=== PATIENT | female | born 1990 | race African-American/Black ===

== ENCOUNTER 2016-08-05 12:12 | Inpatient (IN) | payer MEDICAID ==
[2016-08-05] MEDS ORDERED: RINGERS SOLUTION,LACTATED 1,000 ML IV PRN (12:33)
[2016-08-05] MEDS ORDERED: RINGERS SOLUTION,LACTATED 1,000 ML IV ONE (12:33)
[2016-08-05 13:08] LABS: APPEARANCE,URINE SLIGHTLY-CLOUDY; BILIRUBIN,URINE NEGATIVE (NEGATIVE); GLUCOSE, URINE 150 mg/dL (NEGATIVE); KETONES,URINE NEGATIVE (NEGATIVE); LEUKOCYTE ESTERASE,URINE NEGATIVE (NEGATIVE); NITRITE,URINE NEGATIVE (NEGATIVE); PROTEIN,URINE NEGATIVE (NEGATIVE); UROBILINOGEN,URINE NEGATIVE mg/dL (<2.0)
[2016-08-05 13:25] LABS: URINE BARBITURATES SCREEN NEGATIVE; URINE METHADONE SCREEN NEGATIVE; URINE OPIATES LOW NEGATIVE; URINE PHENCYCLIDINE SCREEN NEGATIVE
[2016-08-05] MEDS ORDERED: OXYTOCIN/NORMAL SALINE 20 UNIT/1,000 ML RTUINJ ONE ×2 (13:42→18:04)
--- NOTE | 2016-08-05 14:01 | L&D Flow Sheet ---
LD Flowsheet Datetime Report Generated by CPN: 08/05/2016 14:00 Datetime: 08/05/2016 13:39 Vital Signs NBP Sys/Vira/Mean (mmHg): 115 (QS system process) : 66 (QS system process) : 84 (QS system process) Pulse: 109 (QS system process) Datetime: 08/05/2016 13:09 Vital Signs NBP Sys/Vira/Mean (mmHg): 106 (QS system process) : 66 (QS system process) : 76 (QS system process) Pulse: 93 (QS system process) Datetime: 08/05/2016 12:53 Pain Pain Scale: 0 (Cleo Andrae, RN) Pain Presence: None/Denies (Cleo Andrae, RN) Pain Type: N/A (Cleo Andrae, RN) Vaginal Exam Membrane Status: Intact (Cleo Andrae, RN) Vaginal Bleeding: None (Cleo Andrae, RN) Acosat's Score Dilatation (cm): 1-2 cm (Cleo Andrae, RN) Effacement: 40-50_ effaced (Cleo Andrae, RN) Station: minus 3 (Cleo Andrae, RN) Maternal Assessment Level of Consciousness: Fully Conscious (Cleo Andrae, RN) Headache: Denies (Cleo Andrae, RN) Breath Sounds, Left: Clear and Equal (Cleo Andrae, RN) Breath Sounds, Right: Clear and Equal (Cleo Andrae, RN) Nausea/Vomiting: Denies (Cleo Andrae, RN) RUQ Epigastric Pain: Denies (Cleo Andrae, RN) Patient Care I/O Interventions: Popsicle; Clear Liquids Given (Cleo Andrae, RN) Datetime: 08/05/2016 12:50 Patient Care Comments: consents signed (Tahmina Camp, RNC) Datetime: 08/05/2016 12:45 Patient Care Comments: 18g inserted into right wrist, infusing without difficulty, pt tolerated procedure well. Blood drawn with IV stick (ARTUR Pete) Datetime: 08/05/2016 12:41 Teaching Instructional Method: Verbal; Patient Instructed; Family/Support Person Instructed; Verbalized Understanding (ARTUR Pete) Plan of Care: Plan of Care Discussed; Induction (ARTUR Pete) Teaching Comments: [facility] at bedside reviewed plan for induction of labor and DX oligohydramnious reviewed and potential risk to fetus with continued decrease fluid (ARTUR Pete) Communication Communication: RN at Bedside; Provider at Bedside (Tahmina Camp, RNC) Datetime: 08/05/2016 12:39 Vital Signs NBP Sys/Vira/Mean (mmHg): 104 (QS system process) : 61 (QS system process) : 73 (QS system process) Pulse: 99 (QS system process)
[2016-08-05 14:14] LABS: ABSOLUTE LYMPHOCYTES (AUTO) 1.5 10^3/uL (0.5-4.7); ABSOLUTE MONOCYTES (AUTO) 0.8 10^3/uL (0.1-1.4); ABSOLUTE NEUT (AUTO) 6.7 10^3/uL (1.7-8.2); BASOPHILS % (AUTO) 0.3 % (0-2); EOSINOPHILS % (AUTO) 0.4 % (0-6); HEMATOCRIT 33.1 % (36.0-47.0); HEMOGLOBIN 11.3 g/dL (12.0-15.5); HGB HCT DIFFERENCE 0.8; LYMPHOCYTES % (AUTO) 16.7 % (13-45); MEAN CORPUSCULAR HEMOGLOBIN 33.8 pg (27.0-33.4); MEAN CORPUSCULAR HGB CONC 34.3 g/dL (32.0-36.0); MEAN CORPUSCULAR VOLUME 99 fl (80-97); MONOCYTES % (AUTO) 9.2 % (3-13); RED BLOOD COUNT 3.35 10^6/uL (3.72-5.28); RED CELL DISTRIBUTION WIDTH 13.5 % (11.5-14.0); SEGMENTED NEUTROPHILS % (AUTO) 73.4 % (42-78); WHITE BLOOD COUNT 9.1 10^3/uL (4.0-10.5)
--- NOTE | 2016-08-05 16:01 | L&D Flow Sheet ---
LD Flowsheet Datetime Report Generated by CPN: 08/05/2016 16:00 Datetime: 08/05/2016 15:44 Monitor Mode: External (Cleo Andrae, RN) Frequency (min): 40-90 (Cleo Andrae, RN) Quality: Mild (Cleo Andrae, RN) Resting Tone (Palpate): Relaxed (Cleo Andrae, RN) Monitor Mode: External US (Cleo Andrae, RN) FHR Baseline Rate : 145 (Cleo Andrae, RN) Variability: Moderate 6-25 bpm (Cleo Andrae, RN) Accelerations: 10X10 (Cleo Andrae, RN) Decelerations: None (Cleo Andrae, RN) Datetime: 08/05/2016 15:40 NBP Sys/Vira/Mean (mmHg): 118 (QS system process) : 60 (QS system process) : 81 (QS system process) Pulse: 97 (QS system process) Monitor Mode: External (Cleo Andrae, RN) Frequency (min): 3-4 (Cleo Andrae, RN) Quality: Mild (Cleo Andrae, RN) Duration (sec): 50-100 (Cleo Andrae, RN) Resting Tone (Palpate): Relaxed (Cleo Andrae, RN) Monitor Mode: External US (Cleo Andrae, RN) FHR Baseline Rate : 145 (Cleo Andrae, RN) Variability: Moderate 6-25 bpm (Cleo Andrae, RN) Accelerations: None (Cleo Andrae, RN) Decelerations: Early (Cleo Andrae, RN) Datetime: 08/05/2016 15:30 Monitor Mode: External (Cleo Andrae, RN) Frequency (min): 3-5 (Cleo Andrae, RN) Quality: Mild (Cleo Andrae, RN) Duration (sec): 60-110 (Cleo Andrae, RN) Resting Tone (Palpate): Relaxed (Cleo Andrae, RN) Monitor Mode: External US (Cleo Andrae, RN) FHR Baseline Rate : 145 (Cleo Andrae, RN) Variability: Moderate 6-25 bpm (Cleo Andrae, RN) Accelerations: 15X15 (Cleo Andrae, RN) Decelerations: None (Cleo Andrae, RN) Datetime: 08/05/2016 15:15 Monitor Mode: External (Cleo Andrae, RN) Frequency (min): 3 (Cleo Andrae, RN) Quality: Mild (Cleo Andrae, RN) Duration (sec): 60-100 (Cleo Andrae, RN) Resting Tone (Palpate): Relaxed (Cleo Andrae, RN) Monitor Mode: External US (Cleo Andrae, RN) FHR Baseline Rate : 145 (Cleo Andrae, RN) Variability: Moderate 6-25 bpm (Cleo Andrae, RN) Accelerations: None (Cleo Andrae, RN) Decelerations: None (Cleo Andrae, RN) Datetime: 08/05/2016 15:12 Pitocin (milliunit): Pitocin Increased to (milliunits) @ 6 (Cleo Andrae, RN) Datetime: 08/05/2016 15:09 NBP Sys/Vira/Mean (mmHg): 113 (QS system process) : 60 (QS system process) : 76 (QS system process) Pulse: 93 (QS system process) Datetime: 08/05/2016 15:00 Monitor Mode: External (Cleo Andrae, RN) Frequency (min): 3-4 (Cleo Andrae, RN) Quality: Mild (Cleo Andrae, RN) Duration (sec): 60-90 (Cleo Andrae, RN) Resting Tone (Palpate): Relaxed (Cleo Andrae, RN) Monitor Mode: External US (Cleo Andrae, RN) FHR Baseline Rate : 140 (Cleo Andrae, RN) Variability: Moderate 6-25 bpm (Cleo Andrae, RN) Accelerations: 15X15 (Cleo Andrae, RN) Decelerations: None (Cleo Andrae, RN) Datetime: 08/05/2016 14:46 Monitor Mode: External (Cleo Andrae, RN) Frequency (min): 3-4 (Cleo Andrae, RN) Quality: Mild (Cleo Andrae, RN) Duration (sec): 50-90 (Cleo Andrae, RN) Resting Tone (Palpate): Relaxed (Cleo Andrae, RN) Monitor Mode: External US (Cleo Andrae, RN) FHR Baseline Rate : 145 (Cleo Andrae, RN) Variability: Minimal - Undetectable to <=5 bpm (Cleo Andrae, RN) Accelerations: None (Cleo Andrae, RN) Decelerations: None (Cleo Andrae, RN) Datetime: 08/05/2016 14:35 Pitocin (milliunit): Pitocin Increased to (milliunits) @ 4 (Cleo Andrae, RN) Datetime: 08/05/2016 14:31 Monitor Mode: External; Palpation (Cleo Andrae, RN) Frequency (min): x1 (Cleo Andrae, RN) Quality: Mild (Cleo Andrae, RN) Resting Tone (Palpate): Relaxed (Cleo Andrae, RN) Monitor Mode: External US (Cleo Andrae, RN) FHR Baseline Rate : 145 (Cleo Andrae, RN) Variability: Minimal - Undetectable to <=5 bpm (Cleo Andrae, RN) Accelerations: None (Cleo Andrae, RN) Decelerations: None (Cleo Andrae, RN) Datetime: 08/05/2016 14:16 Monitor Mode: External (Cleo Andrae, RN) Frequency (min): none (Cleo Andrae, RN) Resting Tone (Palpate): Relaxed (Cleo Andrae, RN) Monitor Mode: External US (Cleo Andrae, RN) FHR Baseline Rate : 145 (Cleo Andrae, RN) Variability: Moderate 6-25 bpm (Cleo Andrae, RN) Accelerations: 15X15 (Cleo Andrae, RN) Decelerations: None (Cleo Andrae, RN) Datetime: 08/05/2016 14:12 Patient Care Comments: pt sitting up in bed, monitors being adjusted (Cleo Andrae, RN) Datetime: 08/05/2016 14:08 I/O Interventions: Up to BR (Cleo Andrae, RN) Datetime: 08/05/2016 14:01 Monitor Mode: External (Cleo Andrae, RN) Frequency (min): none (Cleo Andrae, RN) Resting Tone (Palpate): Relaxed (Cleo Andrae, RN) Monitor Mode: External US (Cleo Andrae, RN) FHR Baseline Rate : 140 (Cleo Andrae, RN) Variability: Moderate 6-25 bpm (Cleo Andrae, RN) Accelerations: 15X15 (Cleo Andrae, RN) Decelerations: None (Cleo Andrae, RN)
--- NOTE | 2016-08-05 18:01 | L&D Flow Sheet ---
LD Flowsheet Datetime Report Generated by CPN: 08/05/2016 18:00 Datetime: 08/05/2016 17:57 Procedure Verify: Correct Patient Identity (Cleo Abebe, RN) Anesthesia Plans: Epidural (Cleo Abebe, RN) Epidural Positioning: Sitting (Cleo Abebe, RN) Anesthesia Comments: LR bolus for epidural started (Cleo Abebe, RN) Datetime: 08/05/2016 17:52 Contraction Comments: amnio infusion started, infusing with LR, bolusing 350cc per MD order (Cleo Abebe, RN) Datetime: 08/05/2016 17:43 Monitor Interventions for UA: IUPC Inserted (Cleo Andrae, RN) Datetime: 08/05/2016 17:42 Dilatation (cm): 4.5 (Cleo Andrae, RN) Effacement (%): 90 (Cleo Andrae, RN) Station: -1 (Cleo Funezmes, RN) Exam by: Dr. Nice (Cleo Funezmes, RN) Cervix, Position: Posterior (Cleo Andrae, RN) Datetime: 08/05/2016 17:39 Communication Comments: DrSolis Nice at bedside (Cleo Andrae, RN) Datetime: 08/05/2016 17:37 Communication Comments: P. Bola CNM at bedside (Cleo Andrae, RN) Datetime: 08/05/2016 17:11 NBP Sys/Vira/Mean (mmHg): 99 (QS system process) : 52 (QS system process) : 71 (QS system process) Pulse: 93 (QS system process) LaborFlag: Antepartum (QS system process) Datetime: 08/05/2016 17:01 Patient Position/Activity: Right Lateral (Cleo Andrae, RN) Datetime: 08/05/2016 16:56 Monitor Interventions for UA: [place] Adjusted (Cleo Andrae, RN) Monitor Interventions for FHR: Ultrasound Adjusted (Cleo Andrae, RN) Patient Position/Activity: Left Extreme (Cleo Andrae, RN) Datetime: 08/05/2016 16:50 Monitor Interventions for UA: [place] Adjusted (Cleo Andrae, RN) Monitor Interventions for FHR: Ultrasound Adjusted (Cleo Andrae, RN) Patient Position/Activity: Left Lateral (Cleo Andrae, RN) Datetime: 08/05/2016 16:45 Monitor Interventions for UA: [place] Adjusted (Cleo Andrae, RN) Datetime: 08/05/2016 16:42 Patient Position/Activity: Left Tilt (Cleo Andrae, RN) Datetime: 08/05/2016 16:39 NBP Sys/Vira/Mean (mmHg): 107 (QS system process) : 58 (QS system process) : 77 (QS system process) Pulse: 95 (QS system process) LaborFlag: Antepartum (QS system process) Datetime: 08/05/2016 16:32 Pitocin (milliunit): Pitocin Increased to (milliunits) @ 10 (Cleo Andrae, RN) Datetime: 08/05/2016 16:18 Temperature (F): 98.2 (Cleo Andrae, RN) Temperature (C): 36.8 (QS system process) LaborFlag: Antepartum (QS system process) Datetime: 08/05/2016 16:10 NBP Sys/Vira/Mean (mmHg): 110 (QS system process) : 65 (QS system process) : 78 (QS system process) Pulse: 91 (QS system process) LaborFlag: Antepartum (QS system process) Datetime: 08/05/2016 16:02 Pitocin (milliunit): Pitocin Increased to (milliunits) @ 8 (Cleo Andrae, RN) Datetime: 08/05/2016 16:00 Monitor Mode: External (Cleo Andrae, RN) Frequency (min): 3-4 (Cleo Andrae, RN) Quality: Mild (Cleo Andrae, RN) Duration (sec): 80-100 (Cleo Andrae, RN) Resting Tone (Palpate): Relaxed (Cleo Andrae, RN) Monitor Mode: External US (Cleo Andrae, RN) FHR Baseline Rate : 145 (Cleo Andrae, RN) Variability: Moderate 6-25 bpm (Cleo Andrae, RN) Accelerations: None (Cleo Andrae, RN) Decelerations: None (Cleo Andrae, RN)
[2016-08-05] MEDS ORDERED: MISOPROSTOL 0.2 MG TABLET ONE (18:04)
[2016-08-05] MEDS ORDERED: LIDOCAINE 1% INJ-PF (10 MG/ML) 30 ML SDV ONE (18:04)
[2016-08-05] MEDS ORDERED: EPHEDRINE SULFATE INJ 50 MG/1 ML AMPULE ONE (18:22)
[2016-08-05] MEDS ORDERED: FENTANYL/BUPIVACAINE/NS/PF 200 MCG/100 ML RTUINJ EPI ONE (18:23)
[2016-08-05] MEDS ORDERED: BUPIVACAINE HCL 0.25 % INJ/PF (2.5 MG/1 ML) 30 ML VIAL ONE (18:23)
--- NOTE | 2016-08-05 20:00 | L&D Flow Sheet ---
LD Flowsheet Datetime Report Generated by CPN: 08/05/2016 20:00 Datetime: 08/05/2016 19:48 NBP Sys/Vira/Mean (mmHg): 111 (QS system process) : 62 (QS system process) : 82 (QS system process) Pulse: 97 (QS system process) LaborFlag: Antepartum (QS system process) Datetime: 08/05/2016 19:39 Communication Comments: Call placed to Dr Nice, will not replace IUPC at this time. RN to restart pitocin when FHR reactive (Gaye Cervantessel, RN) Datetime: 08/05/2016 19:35 NBP Sys/Vira/Mean (mmHg): 110 (QS system process) : 62 (QS system process) : 80 (QS system process) Pulse: 98 (QS system process) LaborFlag: Antepartum (QS system process) Datetime: 08/05/2016 19:18 NBP Sys/Vira/Mean (mmHg): 115 (QS system process) : 61 (QS system process) : 83 (QS system process) Pulse: 87 (QS system process) LaborFlag: Antepartum (QS system process) Datetime: 08/05/2016 19:17 NBP Sys/Vira/Mean (mmHg): 121 (QS system process) : 62 (QS system process) : 83 (QS system process) Pulse: 81 (QS system process) LaborFlag: Antepartum (QS system process) Datetime: 08/05/2016 19:16 NBP Sys/Vira/Mean (mmHg): 105 (QS system process) : 61 (QS system process) : 76 (QS system process) Pulse: 93 (QS system process) LaborFlag: Antepartum (QS system process) Datetime: 08/05/2016 19:15 NBP Sys/Vira/Mean (mmHg): 109 (QS system process) : 61 (QS system process) : 79 (QS system process) Pulse: 90 (QS system process) Monitor Mode: External (Radha Grant RN) Frequency (min): utd (Radha Grant RN) Quality: Moderate (Radha Grant RN) Duration (sec): 60 (Radha Grant RN) Resting Tone (Palpate): Relaxed (Radha Grant RN) Monitor Mode: External US (Radha Grant RN) Variability: Moderate 6-25 bpm (Radha Grant RN) Decelerations: Late (Radha Grant RN) Actions for Decelerations: Other (Radha Grant RN) Comments: ephedrine (Radha Grant RN) LaborFlag: Antepartum (QS system process) Datetime: 08/05/2016 19:14 NBP Sys/Vira/Mean (mmHg): 102 (QS system process) : 56 (QS system process) : 74 (QS system process) Pulse: 89 (QS system process) LaborFlag: Antepartum (QS system process) Datetime: 08/05/2016 19:13 NBP Sys/Vira/Mean (mmHg): 103 (QS system process) : 56 (QS system process) : 74 (QS system process) Pulse: 85 (QS system process) LaborFlag: Antepartum (QS system process) Datetime: 08/05/2016 19:12 NBP Sys/Vira/Mean (mmHg): 105 (QS system process) : 51 (QS system process) : 73 (QS system process) Pulse: 83 (QS system process) Medication Comments: 5mg Ephedrine IV (Cleo Abebe RN) LaborFlag: Antepartum (QS system process) Datetime: 08/05/2016 19:10 Dilatation (cm): 5.0 (Gaye Cuenca RN) Effacement (%): 90 (Gaye Cuenca RN) Station: -1 (Gaye Cuenca RN) Exam by: Falguni Abebe RN (Gaye Cuenca RN) Patient Position/Activity: Right Tilt (Cleo Abebe RN) Datetime: 08/05/2016 19:09 NBP Sys/Vira/Mean (mmHg): 161 (QS system process) : 67 (QS system process) : 97 (QS system process) Pulse: 87 (QS system process) LaborFlag: Antepartum (QS system process) Datetime: 08/05/2016 19:07 Monitor Mode: External (Radha Grant RN) Monitor Interventions for UA: [place] Adjusted (Radha Grant RN) Datetime: 08/05/2016 19:05 NBP Sys/Vira/Mean (mmHg): 134 (QS system process) : 59 (QS system process) : 85 (QS system process) Pulse: 85 (QS system process) I/O Interventions: Topete Cath Inserted (Cleo Abebe RN) Patient Care Comments: pt tolerated procedure well (Cleo Abebe RN) LaborFlag: Antepartum (QS system process) Datetime: 08/05/2016 19:04 NBP Sys/Vira/Mean (mmHg): 122 (QS system process) : 67 (QS system process) : 86 (QS system process) Pulse: 88 (QS system process) LaborFlag: Antepartum (QS system process) Datetime: 08/05/2016 19:03 NBP Sys/Vira/Mean (mmHg): 113 (QS system process) : 68 (QS system process) : 84 (QS system process) Pulse: 86 (QS system process) LaborFlag: Antepartum (QS system process) Datetime: 08/05/2016 19:02 NBP Sys/Vira/Mean (mmHg): 114 (QS system process) : 69 (QS system process) : 85 (QS system process) Pulse: 85 (QS system process) LaborFlag: Antepartum (QS system process) Datetime: 08/05/2016 18:59 Monitor Mode: Internal (Radha Craigtt, RN) Frequency (min): 0 (Radha Carigtt, RN) Resting Tone (Palpate): Relaxed (Radha Craigtt, RN) Monitor Mode: External US (Radha Craigtt, RN) FHR Baseline Changes: Unable to Determine (Radhaayo Craigtt, RN) Variability: Moderate 6-25 bpm (Radha Marlatt, RN) Datetime: 08/05/2016 18:58 Patient Position/Activity: Left Tilt (Cleo Andrae, RN) Datetime: 08/05/2016 18:56 NBP Sys/Vira/Mean (mmHg): 126 (QS system process) : 61 (QS system process) : 87 (QS system process) Pulse: 99 (QS system process) LaborFlag: Antepartum (QS system process) Datetime: 08/05/2016 18:55 NBP Sys/Vira/Mean (mmHg): 120 (QS system process) : 59 (QS system process) : 83 (QS system process) Pulse: 97 (QS system process) Pulse: 88 (QS system process) SpO2 (%): 100 (QS system process) LaborFlag: Antepartum (QS system process) Datetime: 08/05/2016 18:54 NBP Sys/Vira/Mean (mmHg): 130 (QS system process) : 60 (QS system process) : 86 (QS system process) Pulse: 92 (QS system process) LaborFlag: Antepartum (QS system process) Datetime: 08/05/2016 18:53 Procedure Verify: Correct Patient Identity (Cleo Andrae, RN) Anesthesia Plans: Epidural (Cleo Andrae, RN) Epidural Positioning: Sitting (Cleo Andrae, RN) Epidural Procedure: Test Dose (Cleo Andrae, RN) Datetime: 08/05/2016 18:50 Pulse: 90 (QS system process) SpO2 (%): 100 (QS system process) LaborFlag: Antepartum (QS system process) Datetime: 08/05/2016 18:45 Monitor Mode: External; Palpation (Tahmina Camp, RNC) Monitor Interventions for UA: [place] Adjusted (Tahmina Camp, RNC) Frequency (min): 2-4 (Tahmina Camp, RNC) Quality: Moderate (Tahmina Camp, RNC) Duration (sec): 60-80 (Tahmina Camp, RNC) Duration Criteria: Less than Two 120 Second Contractions (Tahmina Camp, RNC) Pattern: Normal: <= 5 Contractions in 10 Minutes (Tahmina Camp, RNC) Resting Tone (Palpate): Relaxed (Tahmina Camp, RNC) Monitor Mode: External US; Auscultation (Tahmina Camp, RNC) FHR Baseline Rate : 150 (Tahmina Camp, RNC) FHR Baseline Changes: No Baseline Change (Tahmina Camp, RNC) Variability: Moderate 6-25 bpm (Tahmina Camp, RNC) Accelerations: 15X15 (Tahmina Camp, RNC) Decelerations: Early (Tahmina Camp, RNC) Datetime: 08/05/2016 18:44 Patient Care Comments: pt sitting up for epidural placement (Cleo Abebe RN) Procedure Verify: Correct Patient Identity (Cleo Abebe RN) Anesthesia Plans: Epidural (Cleo Abebe RN) Epidural Positioning: Sitting (Cleo Abebe RN) Anesthesia Comments: Dr. Gayle at bedside (Cleo Abebe, ROMA) Datetime: 08/05/2016 18:41 NBP Sys/Vira/Mean (mmHg): 141 (QS system process) : 68 (QS system process) : 90 (QS system process) Pulse: 96 (QS system process) LaborFlag: Antepartum (QS system process) Datetime: 08/05/2016 18:30 Monitor Mode: External; Palpation (Tahmina Camp, RNC) Frequency (min): 1-3 (Tahmina Camp, RNC) Quality: Moderate (Tahmina Camp, RNC) Duration (sec): 50-80 (Tahmina Camp, RNC) Duration Criteria: Less than Two 120 Second Contractions (Tahmina Camp, RNC) Pattern: Normal: <= 5 Contractions in 10 Minutes (Tahmina Camp, RNC) Resting Tone (Palpate): Relaxed (Tahmina Camp, RNC) Monitor Mode: External US; Auscultation (Tahmina Camp, RNC) FHR Baseline Rate : 145 (Tahmina Camp, RNC) FHR Baseline Changes: No Baseline Change (Tahmina Camp, RNC) Variability: Moderate 6-25 bpm (Tahmina Camp, RNC) Accelerations: 15X15 (Tahmina Camp, RNC) Decelerations: Early; Variable (Tahmina Camp, RNC) Datetime: 08/05/2016 18:21 Anesthesia Comments: Dr. Gayle called and informed of pt request for epidural. MD stated he will be 20-25 minutes (Cleo Andrae, RN) Datetime: 08/05/2016 18:15 Monitor Mode: Internal; Palpation (Cleo Andrae, RN) Frequency (min): 2-5 (Cleo Andrae, RN) Quality: Moderate (Cleo Andrae, RN) Duration (sec): 60-90 (Cleo Andrae, RN) Resting Tone (Palpate): Relaxed (Cleo Andrae, RN) Contraction Comments: fluid return from amnio infusion observed (Cleo Andrae, RN) Monitor Mode: External US (Cleo Andrae, RN) FHR Baseline Rate : 145 (Cleo Andrae, RN) Variability: Moderate 6-25 bpm (Cleo Andrae, RN) Accelerations: None (Cleo Andrae, RN) Decelerations: None (Cleo Andrae, RN) Datetime: 08/05/2016 18:11 NBP Sys/Vira/Mean (mmHg): 118 (QS system process) : 54 (QS system process) : 78 (QS system process) Pulse: 90 (QS system process) LaborFlag: Antepartum (QS system process) Datetime: 08/05/2016 18:00 Monitor Mode: External (Tahmina Camp, RNC) Frequency (min): 2-4 (Tahmina Camp, RNC) Duration (sec): 60-80 (Tahmina Camp, RNC) Pattern: Normal: <= 5 Contractions in 10 Minutes (Tahmina Camp, RNC) Resting Tone (Palpate): Relaxed (Tahmina Camp, RNC) Resting Tone IUP (mmHg): 20 (Tahmina Camp, RNC) Intensity IUP (mmHg): 65 (Tahmina Camp, RNC) Monitor Mode: External US (Cleo Abebe, RN) FHR Baseline Rate : 145 (Tahmina Camp, RNC) FHR Baseline Changes: No Baseline Change (Tahmina Camp, RNC) Variability: Moderate 6-25 bpm (Tahmina Camp, RNC) Accelerations: Prolonged (Tahmina Camp, RNC) Decelerations: Variable (Tahmina Camp, RNC)
--- NOTE | 2016-08-05 22:01 | L&D Flow Sheet ---
LD Flowsheet Datetime Report Generated by CPN: 08/05/2016 22:00 Datetime: 08/05/2016 21:49 NBP Sys/Vira/Mean (mmHg): 119 (QS system process) : 75 (QS system process) : 91 (QS system process) Pulse: 86 (QS system process) LaborFlag: Antepartum (QS system process) Datetime: 08/05/2016 21:45 Monitor Mode: External (Gaye Joellen, RN) Frequency (min): 2-4 (Gaye Joellen, RN) Quality: Moderate (Gaye Joellen, RN) Duration (sec): 50-90 (Gaye Joellen, RN) Resting Tone (Palpate): Relaxed (Gaye Joellen, RN) Monitor Mode: External US (Gaye Joellen, RN) FHR Baseline Rate : 145 (Gaye Joellen, RN) Variability: Moderate 6-25 bpm (Gaye Joellen, RN) Accelerations: None (Gaye Joellen, RN) Decelerations: None (Gaye Joellen, RN) Pitocin (milliunit): Pitocin Remains (milliunits) @ 8 (Gaye Joellen, RN) Datetime: 08/05/2016 21:37 Monitor Interventions for FHR: Ultrasound Adjusted (Gaye Joellen, RN) Pitocin (milliunit): Pitocin Increased to (milliunits) @ (Annotations: 8) (Gaye Joellen, RN) Datetime: 08/05/2016 21:35 NBP Sys/Vira/Mean (mmHg): 117 (QS system process) : 81 (QS system process) : 93 (QS system process) Pulse: 90 (QS system process) LaborFlag: Antepartum (QS system process) Datetime: 08/05/2016 21:30 Monitor Mode: External (Gaye Joellen, RN) Frequency (min): 2-5 (Gaye Joellen, RN) Quality: Moderate (Gaye Joellen, RN) Duration (sec): 50-90 (Gaye Joellen, RN) Resting Tone (Palpate): Relaxed (Gaye Joellen, RN) Monitor Mode: External US (Gaye Joellen, RN) FHR Baseline Rate : 145 (Gaye Joellen, RN) Variability: Moderate 6-25 bpm (Gaye Joellen, RN) Accelerations: None (Gaye Joellen, RN) Decelerations: None (Gaye Joellen, RN) Pitocin (milliunit): Pitocin Remains (milliunits) @ 6 (Gaye Joellen, RN) Datetime: 08/05/2016 21:29 Monitor Interventions for FHR: Ultrasound Adjusted (Gaye Joellen, RN) Communication: RN at Bedside (Gaye Joellen, RN) Datetime: 08/05/2016 21:22 Pitocin (milliunit): Pitocin Increased to (milliunits) @ 6 (Gaye Joellen, RN) Datetime: 08/05/2016 21:20 NBP Sys/Vira/Mean (mmHg): 120 (QS system process) : 70 (QS system process) : 89 (QS system process) Pulse: 88 (QS system process) LaborFlag: Antepartum (QS system process) Datetime: 08/05/2016 21:15 Monitor Mode: External (Gaye Joellen, RN) Frequency (min): 2-5 (Gaye Joellen, RN) Quality: Moderate (Gaye Joellen, RN) Duration (sec): 50-100 (Gaye Joellen, RN) Resting Tone (Palpate): Relaxed (Gaye Joellen, RN) Monitor Mode: External US (Gaye Joellen, RN) FHR Baseline Rate : 145 (Gaye Joellen, RN) Variability: Moderate 6-25 bpm (Gaye Joellen, RN) Accelerations: None (Gaye Joellen, RN) Decelerations: None (Gaye Joellen, RN) Pitocin (milliunit): Pitocin Remains (milliunits) @ (Annotations: 4) (Gaye Joellen, RN) Datetime: 08/05/2016 21:08 Dilatation (cm): 8.0 (Gaye Joellen, RN) Effacement (%): 90 (Gaye Joellen, RN) Station: -1 (Gaye Joellen, RN) Exam by: Dr Nice (Gaye Joellen, RN) Datetime: 08/05/2016 21:04 NBP Sys/Vira/Mean (mmHg): 111 (QS system process) : 69 (QS system process) : 85 (QS system process) Pulse: 92 (QS system process) LaborFlag: Antepartum (QS system process) Datetime: 08/05/2016 21:01 Patient Position/Activity: Left Lateral; Peanut Ball (Gaye Joellen, RN) Datetime: 08/05/2016 21:00 Monitor Mode: External (Gaye Joellen, RN) Frequency (min): 2-5 (Gaye Joellen, RN) Quality: Moderate (Gaye Joellen, RN) Duration (sec): 60-110 (Gaye Joellen, RN) Resting Tone (Palpate): Relaxed (Gaye Joellen, RN) Monitor Mode: External US (Gaye Joellen, RN) FHR Baseline Rate : 145 (Gaye Joellen, RN) Variability: Moderate 6-25 bpm (Gaye Joellen, RN) Accelerations: 15X15 (Gaye Joellen, RN) Decelerations: None (Gaye Joellen, RN) Pitocin (milliunit): Pitocin Increased to (milliunits) @ 4 (Gaye Joellen, RN) Datetime: 08/05/2016 20:49 NBP Sys/Vira/Mean (mmHg): 106 (QS system process) : 58 (QS system process) : 75 (QS system process) Pulse: 104 (QS system process) LaborFlag: Antepartum (QS system process) Datetime: 08/05/2016 20:45 Monitor Mode: External (Gaye Joellen, RN) Frequency (min): 3-7 (Gaye Joellen, RN) Quality: Moderate (Gaye Joellen, RN) Duration (sec): 60-80 (Gaye Joellen, RN) Resting Tone (Palpate): Relaxed (Gaye Joellen, RN) Monitor Mode: External US (Gaye Joellen, RN) FHR Baseline Rate : 145 (Gaye Joellen, RN) Variability: Minimal - Undetectable to <=5 bpm (Gaye Joellen, RN) Accelerations: None (Gaye Joellen, RN) Decelerations: None (Gaye Joellen, RN) Pitocin (milliunit): Pitocin Remains (milliunits) @ (Annotations: 2) (Gaye Joellen, RN) Datetime: 08/05/2016 20:34 NBP Sys/Vira/Mean (mmHg): 117 (QS system process) : 68 (QS system process) : 85 (QS system process) Pulse: 96 (QS system process) LaborFlag: Antepartum (QS system process) Datetime: 08/05/2016 20:30 Monitor Mode: External (Gaye Joellen, RN) Frequency (min): 3-4 (Gaye Joellen, RN) Quality: Moderate (Gaye Joellen, RN) Duration (sec): 60-120 (Gaye Joellen, RN) Resting Tone (Palpate): Relaxed (Gaye Joellen, RN) Monitor Mode: External US (Gaye Joellen, RN) FHR Baseline Rate : 145 (Gaye Joellen, RN) Variability: Moderate 6-25 bpm (Gaye Joellen, RN) Accelerations: None (Gaye Joellen, RN) Decelerations: None (Gaye Joellen, RN) Pitocin (milliunit): Pitocin Remains (milliunits) @ (Annotations: 2) (Gaye Joellen, RN) Datetime: 08/05/2016 20:19 NBP Sys/Vira/Mean (mmHg): 108 (QS system process) : 65 (QS system process) : 81 (QS system process) Pulse: 87 (QS system process) LaborFlag: Antepartum (QS system process) Datetime: 08/05/2016 20:15 Monitor Mode: External (Gaye Joellen, RN) Frequency (min): 3-4 (Gaye Joellen, RN) Quality: Moderate (Gaye Joellen, RN) Duration (sec): 70-90 (Gaye Joellen, RN) Resting Tone (Palpate): Relaxed (Gaye Joellen, RN) Monitor Mode: External US (Gaye Joellen, RN) FHR Baseline Rate : 145 (Gaye Joellen, RN) Variability: Moderate 6-25 bpm (Gaye Joellen, RN) Accelerations: 15X15 (Gaye Joellen, RN) Decelerations: None (Gaye Joellen, RN) Pitocin (milliunit): Pitocin Remains (milliunits) @ (Annotations: 2) (Gaye Joellen, RN) Datetime: 08/05/2016 20:04 NBP Sys/Vira/Mean (mmHg): 115 (QS system process) : 64 (QS system process) : 84 (QS system process) Pulse: 87 (QS system process) LaborFlag: Antepartum (QS system process) Datetime: 08/05/2016 20:01 Pitocin (milliunit): Pitocin Started (milliunits) @ 2 (Gaye Joellen, RN) Datetime: 08/05/2016 20:00 Monitor Mode: External (Gaye Joellen, RN) Frequency (min): 3-5 (Gaye Joellen, RN) Quality: Moderate (Gaye Joellen, RN) Duration (sec): 50-90 (Gaye Joellen, RN) Resting Tone (Palpate): Relaxed (Gaye Joellen, RN) Monitor Mode: External US (Gaye Joellen, RN) FHR Baseline Rate : 145 (Gaye Joellen, RN) Variability: Moderate 6-25 bpm (Gaye Joellen, RN) Accelerations: 15X15 (Gaye Joellen, RN) Decelerations: None (Gaye Joellen, RN)
[2016-08-05] MEDS ORDERED: MAGNESIUM HYDROXIDE SUSP 30 ML UDCUP PO PRN (22:49)
[2016-08-05] MEDS ORDERED: PROMETHAZINE HCL 25 MG SUPP.RECT PR PRN (22:49)
[2016-08-05] MEDS ORDERED: ACETAMINOPHEN WITH CODEINE #3 TABLET PO PRN ×2 (22:49)
[2016-08-05] MEDS ORDERED: OXYTOCIN/NORMAL SALINE 1,000 ML IV PRN (22:49)
[2016-08-05] MEDS ORDERED: MEASLES,MUMPS&RUBELLA VACC/PF 0.5 ML VIAL SUBCUT PRN (22:49)
[2016-08-05] MEDS ORDERED: PSEUDOEPHEDRINE HCL 30 MG TABLET PO PRN (22:49)
[2016-08-05] MEDS ORDERED: ACETAMINOPHEN 650 MG SUPP.RECT PR PRN (22:49)
[2016-08-05] MEDS ORDERED: DIPH/PERTUSS(ACELL)/TETANUS VAC/PF 0.5 ML SYR (>=10YO) IM PRN (22:49)
[2016-08-05] MEDS ORDERED: NA PHOS,M-B/NA PHOS,DI-BA (ADULT) 133 ML ENEMA PR PRN (22:49)
[2016-08-05] MEDS ORDERED: PROMETHAZINE HCL 25 MG TABLET PO PRN (22:49)
[2016-08-05] MEDS ORDERED: DIBUCAINE 1% OINTMENT 28 GM TP PRN (22:49)
[2016-08-05] MEDS ORDERED: DIPHENHYDRAMINE HCL 25 MG CAPSULE PO PRN (22:49)
[2016-08-05] MEDS ORDERED: ZOLPIDEM TARTRATE 5 MG TABLET PO PRN (22:49)
[2016-08-05] MEDS ORDERED: PROMETHAZINE HCL INJ 25 MG/1 ML VIAL IV PRN (22:49)
[2016-08-05] MEDS ORDERED: BENZOCAINE/MENTHOL AEROSOL SPRAY 56 ML TOP PRN (22:49)
[2016-08-05] MEDS ORDERED: GLYCERIN/WITCH HAZEL LEAF 1 EACH MED..PAD TP PRN (22:49)
--- NOTE | 2016-08-06 01:20 | Admission Physical ---
Datetime Report Generated by CPN: 08/06/2016 01:20 CURRENT ADMISSION Indication for Induction: Oligohydramnios Indication for Induction- Other: ROSS 2.4 at [facility] Admit Plan: Admit to Unit ALLERGIES Medication Allergies: Yes Medication Allergies: shellfish derived (08/05/2016) Latex: No Latex Allergies OBSTETRICAL HISTORY EDC: 08/03/2016 00:00 : 3 Para: 1 Term: 1 : 0 SAB: 0 IAB: 1 Ectopic: 0 Livin Cesareans: 0 VBACs: 0 Multiple Births: 0 Gestational Diabetes: No Rh Sensitization: No Incompetent Cervix: No GABE: No Infertility: No ART Treatment: No Uterine Anomaly: No IUGR: No Hx Previous C/S: No Macrosomia: No Hx Loss/Stillborn: No PIH: No Hx : No Placenta Previa/Abruption: No Depression/PP Depression: No PTL/PROM: No Post Hemorrhage: No Current Procedures: Ultrasound Obstetrical History Comments: G1- IAB 2006 9 weeks G2- m 40.3 weeks [id number] G3- current late PNC SEE RECORDS Alcohol: No Marijuana : No Cocaine: No Other Illicit Drugs: No Cigarettes: Former Smoker. [id number] MEDICAL HISTORY Diabetes: No Blood Transfusion: No Pulmonary Disease (Asthma, TB): No Breast Disease: No Hypertension: No Putter In Surgery: No Heart Disease: No Hosp/Surgery: No Autoimmune Disorder: No Anesthetic Complications: No Kidney Disease: No Abnormal Pap Smear: No Neuro/Epilepsy: No Psychiatric Disorders: No Other Medical Diseases: No Hepatitis/Liver Disease: No Significant Family History: No Varicosities/Phlebitis: No Trauma/Violence : No Thyroid Dysfunction: No Medical History Comments: Carpal tunnel INFECTIOUS HISTORY Gonorrhea: No Genital Herpes: No Chlamydia: No Tuberculosis: No Syphilis: No Hepatitis: No HIV/AIDS Exposure: No Rash or Viral Illness: No HPV: No PHYSICAL EXAM General: Normal Neurologic: Normal Thyroid: Deferred Heart: Normal Lungs: Normal Breast: Deferred Back: Normal Abdomen: Normal Genitourinary Exam: Deferred DTRs: Normal Pelvic Type: Adequate Physical Exam Comments: Gravid uterus Vital Signs: Reviewed; Within Normal Limits MEMBRANES Membranes: Intact FETUS A Monitoring: External US FHR- Baseline: 150 Presentation: Vertex Admit Comment: Admitted from [facility] for IOL for oligohydramnios and decelerations on nst Cx 2/50/high per Dr Copeland Proven for 8lbs 15 oz Obesity with wt gain of 76 lbs See antepartum record Will monitor FHR tracing and make POC PLANS FOR LABOR AND DELIVERY Labor and Delivery: Other, Specify Pain Management: Epidural Other Pain Management Plans: unsure Feeding Preference: Breast Benefit of Breast Feed Discussed: Yes Circumcision: N/A INFORMED CONSENT Assignment: Shana Nice MD Signature: with User ID: Katie : with User ID: Katie : I personally evaluated and examined the patient in conjunction with the MLP and agree with the assessment, treatment plan and disposition.
--- NOTE | 2016-08-06 01:30 | Delivery Summary ---
Del Sum A-C Datetime Report Generated by CPN: 08/06/2016 01:29 ADMISSION DATA Indication for Induction: Oligohydramnios Indication for Induction Comment: ROSS 2.4 at [facility] Admission Impression: Term, Intrauterine ; No Active Labor; Induction of Labor Admit Provider Comments: Admitted from [facility] for IOL for oligohydramnios and decelerations on nst Cx 2/50/high per Dr Copeland Proven for 8lbs 15 oz Obesity with wt gain of 76 lbs See antepartum record Will monitor FHR tracing and make POC DELIVERY PERSONNEL Delivery Doctor:: Shana Nice MD Labor and Delivery Nurse:: Gaye Cuenca RNcompliance vice president Nurse:: Stormy Alfaro RN Open Tenter Operator/BUSINESS ANALYST [employer]: Travissagar Baca, BUSINESS ANALYST [employer] MATERNAL INFORMATION Delivery Anesthesia: Epidural Medications After Delivery: Pitocin Bolus-Please Comment Meds After Delivery Comment: pitocin 20 units in 1000 mL NSS after delivery of placenta Maternal Complications: None LABOR SUMMARY EDC: 08/03/2016 00:00 No. Babies in Womb: 1 Attempted: No Labor Anesthesia: Epidural LABOR INFORMATION Reason for Induction: Oligohydramnios Onset of Labor: 08/05/2016 19:10 Complete Dilatation: 08/05/2016 22:22 Oxytocin: Induction Group B Beta Strep: neg Antibiotics # of Doses: 0 Steroids Given: None Reason Steroids Not Administered: Not Applicable MEMBRANES Membranes Rupture Method: Artificial Rupture of Membranes: 08/05/2016 17:42 Length of Rupture (hr): 4.87 Amniotic Fluid Color: Clear Amniotic Fluid Amount: Small Amniotic Fluid Odor: Normal STAGES OF LABOR Stage 1 hr: 3 Stage 1 min: 12 Stage 2 hr: 0 Stage 2 min: 12 Stage 3 hr: 0 Stage 3 min: 8 Total Time in Labor hr: 3 Total Time in Labor min: 32 VAGINAL DELIVERY Episiotomy: None Laceration Extension: N/A Laceration Type: None Laceration Repair: Not Applicable Sponge Count Correct: Yes; Vaginal Sweep Performed Sharps Count Correct: Yes CSECTION DELIVERY Primary Indication: N/A Secondary Indication: N/A CSection Incidence: N/A Labor: N/A Elective: N/A BABY A INFORMATION Delivery Date/Time: 08/05/2016 22:34 Method of Delivery: Vaginal Born in Route : No : N/A Forceps: N/A Vacuum Extraction: N/A Shoulder Dystocia : No PRESENTATION/POSITION BABY A Presentation: Cephalic Cephalic Presentation: Vertex Vertex Position: Right Occipital Anterior Breech Presentation: N/A PLACENTA INFORMATION BABY A Placenta Delivery Time : 08/05/2016 22:42 Placenta Method of Delivery: Spontaneous Placenta Status: Delivered SCORES BABY A Heart Rate 1 min: >100 bpm Resp Effort 1 min: Good Cry Reflex Irritability 1 min: Cough or Sneeze or Pulls Away Muscle Tone 1 min: Active Motion Color 1 min: Blue/Pale Resuscitation Effort 1 min: Tactile Stimulation SCORE 1 MIN: 8 Heart Rate 5 min: >100 bpm Resp Effort 5 min: Good Cry Reflex Irritability 5 min: Cough or Sneeze or Pulls Away Muscle Tone 5 min: Active Motion Color 5 min: Body Wink[place], Extremities Blue Resuscitation Effort 5 min: Tactile Stimulation SCORE 5 MIN: 9 INFANT INFORMATION BABY A Gestational Age at Delivery: 40.2 Gestational Status: Full Term- 39- 40.6 Weeks Infant Outcome : Liveborn Infant Condition : Stable Infant Sex: Female IDENTIFICATION BABY A Verification Date/Time: 08/05/2016 22:45 ID Band Number: [id number] Mother's Name Verified: Yes Infant RN Verifying Infant: R Angelina, RNC Additional Verifying Personnel: D [place], US WEIGHT/LENGTH BABY A Birthweight (gm): 3095 Infant Weight (lb): 6 Infant Weight (oz): 13 Length (in): 19.50 Length (cm): 49.53 CORD INFORMATION BABY A No. Cord Vessels: 3 Nuchal Cord : N/A Cord Blood Taken: Yes-For Storage (Mom's Blood type +) Suction: Mouth; Nose ASSESSMENT BABY A Complications: Oligohydramnios Physical Findings at Delivery: Within Normal Limits Respirations: Appears Normal Skin to Skin: Yes Skin to Skin Time (min): 45 Nuisance Animal Damage Control Agent/ALS Called : No Care By: ARTUR Andrew Transferred To: Remains with Mother BABY B INFORMATION : N/A SIGNATURES Signature: with User ID: [email or web address] : I personally evaluated and examined the patient in conjunction with the MLP and agree with the assessment, treatment plan and disposition.
[2016-08-06] MEDS: IBUPROFEN 800 MG TABLET PO SCH ×3 (05:03→21:26)
--- NOTE | 2016-08-06 07:01 | L&D Flow Sheet ---
LD Flowsheet Datetime Report Generated by CPN: 08/06/2016 07:00 Datetime: 08/06/2016 01:00 NBP Sys/Vira/Mean (mmHg): 123 (Gaye Joellen, RN) : 77 (Gaye Joellen, RN) Pulse: 94 (Gaye Joellen, RN) Respirations: 16 (Gaye Joellen, RN) SpO2 (%): 100 (Gaye Joellen, RN) Temperature (F): 98.4 (Gaye Joellen, RN) Temperature (C): 36.9 (QS system process) Temperature Route: Oral (Gaye Joellen, RN) Pain Presence: None/Denies (Gaye Joellen, RN) Datetime: 08/05/2016 23:34 NBP Sys/Vira/Mean (mmHg): 120 (QS system process) : 68 (QS system process) : 89 (QS system process) Pulse: 92 (QS system process) Datetime: 08/05/2016 23:19 NBP Sys/Vira/Mean (mmHg): 113 (QS system process) : 64 (QS system process) : 82 (QS system process) Pulse: 101 (QS system process) Datetime: 08/05/2016 23:04 NBP Sys/Vira/Mean (mmHg): 116 (QS system process) : 67 (QS system process) : 87 (QS system process) Pulse: 100 (QS system process) Datetime: 08/05/2016 22:49 NBP Sys/Vira/Mean (mmHg): 115 (QS system process) : 59 (QS system process) : 82 (QS system process) Pulse: 97 (QS system process) Datetime: 08/05/2016 22:45 Pain Presence: None/Denies (Gaye Joellen, RN) Datetime: 08/05/2016 22:35 Stage of : Recovery (Gaye Joellen, RN) Datetime: 08/05/2016 22:34 NBP Sys/Vira/Mean (mmHg): 116 (QS system process) : 75 (QS system process) : 84 (QS system process) Stage 2 Comments: delivery of viable female infant with spontaneous respirations and vigorous cry. Infant to maternal abd, cord clamped and cut by FOB. See del summary (Gaye Cuenca RN) LaborFlag: Antepartum (QS system process) Datetime: 08/05/2016 22:33 Pushing Progress: Presenting Part Visible (Gaye Cuenca, RN) Datetime: 08/05/2016 22:30 Monitor Mode: External (Gaye Cuenca RN) Frequency (min): 1.5-3 (Gaye Cuenca RN) Quality: Moderate (Gaye Cuenca RN) Duration (sec): 50-110 (Gaye Cuenca RN) Resting Tone (Palpate): Relaxed (Gaye Cuenca RN) Monitor Mode: External US (Gaye Cuenca RN) FHR Baseline Rate : 145 (Gaye Cuenca RN) Variability: Moderate 6-25 bpm (Gaye Cuenca RN) Accelerations: 15X15 (Gaye Cuenca RN) Decelerations: Late (Gaye Cuenca RN) Comments: RN and provider at bedside continuously assessing FHR and ctx (Gaye Cuenca RN) Pitocin (milliunit): Pitocin Remains (milliunits) @ 10 (Gaye Cuenca RN) Pushing: Coached on Pushing; Urge to Push (Gaye Cuenca RN) Pushing Position: Pushing with Contractions; Pushing Lithotomy (Gaye Cuenca, ROMA) Pushing Progress: Pushing Effectively with Contractions (Gaye Cuenca RN) Communication: Provider at Bedside (Gaye Cuenca RN) Communication Comments: Dr Nice at bedside (Gaye Cuenca, ROMA) Datetime: 08/05/2016 22:29 I/O Interventions: Topete Discontinued (Gaye Cuenca RN) Datetime: 08/05/2016 22:22 Dilatation (cm): 10.0 (Gaye Joellen, RN) Effacement (%): 100 (Gaye Joellen, RN) Station: 0 (Gaye Joellen, RN) Exam by: K Joellen RN (Gaye Joellen, RN) Datetime: 08/05/2016 22:19 NBP Sys/Vira/Mean (mmHg): 116 (QS system process) : 63 (QS system process) : 82 (QS system process) Pulse: 97 (QS system process) LaborFlag: Antepartum (QS system process) Datetime: 08/05/2016 22:15 Monitor Mode: External (Gaye Joellen, RN) Frequency (min): 2-6 (Gaye Joellen, RN) Quality: Moderate (Gaye Joellen, RN) Duration (sec): 50-120 (Gaye Joellen, RN) Resting Tone (Palpate): Relaxed (Gaye Joellen, RN) Monitor Mode: External US (Gaye Joellen, RN) FHR Baseline Rate : 145 (Gaye Joellen, RN) Variability: Moderate 6-25 bpm (Gaye Joellen, RN) Accelerations: 10X10 (Gaye Joellen, RN) Decelerations: Early; Variable (Gaye Joellen, RN) Pitocin (milliunit): Pitocin Remains (milliunits) @ 10 (Gaye Joellen, RN) Datetime: 08/05/2016 22:08 Pitocin (milliunit): Pitocin Increased to (milliunits) @ 10 (Gaye Joellen, RN) Patient Position/Activity: Right Extreme (Gaye Joellen, RN) Datetime: 08/05/2016 22:06 Dilatation (cm): 8.0 (Gaye Joellen, RN) Effacement (%): 90 (Gaye Joellen, RN) Station: -1 (Gaye Joellen, RN) Exam by: Maggy Cuenca RN (Gaye Joellen, RN) Datetime: 08/05/2016 22:05 NBP Sys/Vira/Mean (mmHg): 127 (QS system process) : 76 (QS system process) : 93 (QS system process) Pulse: 100 (QS system process) LaborFlag: Antepartum (QS system process) Datetime: 08/05/2016 22:00 Monitor Mode: External (Gaye Joellen, RN) Frequency (min): 2-3 (Gaye Joellen, RN) Quality: Moderate (Gaye Joellen, RN) Duration (sec): 50-120 (Gaye Joellen, RN) Resting Tone (Palpate): Relaxed (Gaye Joellen, RN) Monitor Mode: External US (Gaye Joellen, RN) FHR Baseline Rate : 135 (Gaye Joellen, RN) Variability: Moderate 6-25 bpm (Gaye Joellen, RN) Accelerations: 10X10 (Gaye Joellen, RN) Decelerations: Late; Variable (Gaye Joellen, RN) Pitocin (milliunit): Pitocin Remains (milliunits) @ 8 (Gaye Joellen, RN) Datetime: 08/05/2016 21:49 NBP Sys/Vira/Mean (mmHg): 119 (QS system process) : 75 (QS system process) : 91 (QS system process) Pulse: 86 (QS system process) LaborFlag: Antepartum (QS system process) Datetime: 08/05/2016 21:45 Monitor Mode: External (Gaye Joellen, RN) Frequency (min): 2-4 (Gaye Joellen, RN) Quality: Moderate (Gaye Joellen, RN) Duration (sec): 50-90 (Gaye Joellen, RN) Resting Tone (Palpate): Relaxed (Gaye Joellen, RN) Monitor Mode: External US (Gaye Joellen, RN) FHR Baseline Rate : 145 (Gaye Joellen, RN) Variability: Moderate 6-25 bpm (Gaye Joellen, RN) Accelerations: None (Gaye Joellen, RN) Decelerations: None (Gaye Joellen, RN) Pitocin (milliunit): Pitocin Remains (milliunits) @ 8 (Gaye Joellen, RN) Datetime: 08/05/2016 21:37 Monitor Interventions for FHR: Ultrasound Adjusted (Gaye Joellen, RN) Pitocin (milliunit): Pitocin Increased to (milliunits) @ (Annotations: 8) (Gaye Joellen, RN) Datetime: 08/05/2016 21:35 NBP Sys/Vira/Mean (mmHg): 117 (QS system process) : 81 (QS system process) : 93 (QS system process) Pulse: 90 (QS system process) LaborFlag: Antepartum (QS system process) Datetime: 08/05/2016 21:30 Monitor Mode: External (Gaye Joellen, RN) Frequency (min): 2-5 (Gaye Joellen, RN) Quality: Moderate (Gaye Joellen, RN) Duration (sec): 50-90 (Gaye Joellen, RN) Resting Tone (Palpate): Relaxed (Gaye Joellen, RN) Monitor Mode: External US (Gaye Joellen, RN) FHR Baseline Rate : 145 (Gaye Joellen, RN) Variability: Moderate 6-25 bpm (Gaye Joellen, RN) Accelerations: None (Gaye Joellen, RN) Decelerations: None (Gaye Joellen, RN) Pitocin (milliunit): Pitocin Remains (milliunits) @ 6 (Gaye Joellen, RN) Datetime: 08/05/2016 21:29 Monitor Interventions for FHR: Ultrasound Adjusted (Gaye Joellen, RN) Communication: RN at Bedside (Gaye Joellen, RN) Datetime: 08/05/2016 21:22 Pitocin (milliunit): Pitocin Increased to (milliunits) @ 6 (Gaye Joellen, RN) Datetime: 08/05/2016 21:20 NBP Sys/Vira/Mean (mmHg): 120 (QS system process) : 70 (QS system process) : 89 (QS system process) Pulse: 88 (QS system process) LaborFlag: Antepartum (QS system process) Datetime: 08/05/2016 21:15 Monitor Mode: External (Gaye Joellen, RN) Frequency (min): 2-5 (Gaye Joellen, RN) Quality: Moderate (Gaye Joellen, RN) Duration (sec): 50-100 (Gaye Joellen, RN) Resting Tone (Palpate): Relaxed (Gaye Joellen, RN) Monitor Mode: External US (Gaye Joellen, RN) FHR Baseline Rate : 145 (Gaye Joellen, RN) Variability: Moderate 6-25 bpm (Gaye Joellen, RN) Accelerations: None (Gaye Joellen, RN) Decelerations: None (Gaye Joellen, RN) Pitocin (milliunit): Pitocin Remains (milliunits) @ (Annotations: 4) (Gaye Joellen, RN) Datetime: 08/05/2016 21:08 Dilatation (cm): 8.0 (Gaye Joellen, RN) Effacement (%): 90 (Gaye Joellen, RN) Station: -1 (Gaye Joellen, RN) Exam by: Dr Nice (Gaye Joellen, RN) Datetime: 08/05/2016 21:04 NBP Sys/Vira/Mean (mmHg): 111 (QS system process) : 69 (QS system process) : 85 (QS system process) Pulse: 92 (QS system process) LaborFlag: Antepartum (QS system process) Datetime: 08/05/2016 21:01 Patient Position/Activity: Left Lateral; Peanut Ball (Gaye Joellen, RN) Datetime: 08/05/2016 21:00 Monitor Mode: External (Gaye Joellen, RN) Frequency (min): 2-5 (Gaye Joellen, RN) Quality: Moderate (Gaye Joellen, RN) Duration (sec): 60-110 (Gaye Joellen, RN) Resting Tone (Palpate): Relaxed (Gaye Joellen, RN) Monitor Mode: External US (Gaye Joellen, RN) FHR Baseline Rate : 145 (Gaye Joellen, RN) Variability: Moderate 6-25 bpm (Gaye Joellen, RN) Accelerations: 15X15 (Gaye Joellen, RN) Decelerations: None (Gaye Joellen, RN) Pitocin (milliunit): Pitocin Increased to (milliunits) @ 4 (Gaye Joellen, RN) Datetime: 08/05/2016 20:49 NBP Sys/Vira/Mean (mmHg): 106 (QS system process) : 58 (QS system process) : 75 (QS system process) Pulse: 104 (QS system process) LaborFlag: Antepartum (QS system process) Datetime: 08/05/2016 20:45 Monitor Mode: External (Gaye Joellen, RN) Frequency (min): 3-7 (Gaye Joellen, RN) Quality: Moderate (Gaye Joellen, RN) Duration (sec): 60-80 (Gaye Joellen, RN) Resting Tone (Palpate): Relaxed (Gaye Joellen, RN) Monitor Mode: External US (Gaye Joellen, RN) FHR Baseline Rate : 145 (Gaye Joellen, RN) Variability: Minimal - Undetectable to <=5 bpm (Gaye Joellen, RN) Accelerations: None (Gaye Joellen, RN) Decelerations: None (Gaye Joellen, RN) Pitocin (milliunit): Pitocin Remains (milliunits) @ (Annotations: 2) (Gaye Joellen, RN) Datetime: 08/05/2016 20:34 NBP Sys/Vira/Mean (mmHg): 117 (QS system process) : 68 (QS system process) : 85 (QS system process) Pulse: 96 (QS system process) LaborFlag: Antepartum (QS system process) Datetime: 08/05/2016 20:30 Monitor Mode: External (Gaye Joellen, RN) Frequency (min): 3-4 (Gaye Joellen, RN) Quality: Moderate (Gaye Joellen, RN) Duration (sec): 60-120 (Gaye Joellen, RN) Resting Tone (Palpate): Relaxed (Gaye Joellen, RN) Monitor Mode: External US (Gaye Joellen, RN) FHR Baseline Rate : 145 (Gaye Joellen, RN) Variability: Moderate 6-25 bpm (Gaye Joellen, RN) Accelerations: None (Gaye Joellen, RN) Decelerations: None (Gaye Joellen, RN) Pitocin (milliunit): Pitocin Remains (milliunits) @ (Annotations: 2) (Gaye Joellen, RN) Datetime: 08/05/2016 20:19 NBP Sys/Vira/Mean (mmHg): 108 (QS system process) : 65 (QS system process) : 81 (QS system process) Pulse: 87 (QS system process) LaborFlag: Antepartum (QS system process) Datetime: 08/05/2016 20:15 Monitor Mode: External (Gaye Joellen, RN) Frequency (min): 3-4 (Gaye Joellen, RN) Quality: Moderate (Gaye Joellen, RN) Duration (sec): 70-90 (Gaye Joellen, RN) Resting Tone (Palpate): Relaxed (Gaye Joellen, RN) Monitor Mode: External US (Gaye Joellen, RN) FHR Baseline Rate : 145 (Gaye Joellen, RN) Variability: Moderate 6-25 bpm (Gaye Joellen, RN) Accelerations: 15X15 (Gaye Joellen, RN) Decelerations: None (Gaye Joellen, RN) Pitocin (milliunit): Pitocin Remains (milliunits) @ (Annotations: 2) (Gaye Joellen, RN) Datetime: 08/05/2016 20:04 NBP Sys/Vira/Mean (mmHg): 115 (QS system process) : 64 (QS system process) : 84 (QS system process) Pulse: 87 (QS system process) LaborFlag: Antepartum (QS system process) Datetime: 08/05/2016 20:01 Pitocin (milliunit): Pitocin Started (milliunits) @ 2 (Gaye Joellen, RN) Datetime: 08/05/2016 20:00 Monitor Mode: External (Gaye Joellen, RN) Frequency (min): 3-5 (Gaye Joellen, RN) Quality: Moderate (Gaye Joellen, RN) Duration (sec): 50-90 (Gaye Joellen, RN) Resting Tone (Palpate): Relaxed (Gaye Joellen, RN) Monitor Mode: External US (Gaye Joellen, RN) FHR Baseline Rate : 145 (Gaye Joellen, RN) Variability: Moderate 6-25 bpm (Gaye Joellen, RN) Accelerations: 15X15 (Gaye Joellen, RN) Decelerations: None (Gaye Joellen, RN) Datetime: 08/05/2016 19:48 NBP Sys/Vira/Mean (mmHg): 111 (QS system process) : 62 (QS system process) : 82 (QS system process) Pulse: 97 (QS system process) LaborFlag: Antepartum (QS system process) Datetime: 08/05/2016 19:45 Monitor Mode: External (Gaye Joellen, RN) Frequency (min): 3-4 (Gaye Joellen, RN) Quality: Moderate (Gaye Joellen, RN) Duration (sec): 60-120 (Gaye Joellen, RN) Resting Tone (Palpate): Relaxed (Gaye Joellen, RN) Monitor Mode: External US (Gaye Joellen, RN) FHR Baseline Rate : 145 (Gaye Joellen, RN) Variability: Minimal - Undetectable to <=5 bpm (Gaye Joellen, RN) Accelerations: 10X10 (Gaye Joellen, RN) Decelerations: None (Gaye Joellen, RN) Datetime: 08/05/2016 19:39 Communication Comments: Call placed to Dr Nice, will not replace IUPC at this time. RN to restart pitocin when FHR reactive (Gaye Joellen, RN) Datetime: 08/05/2016 19:35 NBP Sys/Vira/Mean (mmHg): 110 (QS system process) : 62 (QS system process) : 80 (QS system process) Pulse: 98 (QS system process) LaborFlag: Antepartum (QS system process) Datetime: 08/05/2016 19:30 Monitor Mode: External (Gaye Joellen, RN) Frequency (min): 2-7 (Gaye Joellen, RN) Quality: Moderate (Gaye Joellen, RN) Duration (sec): 60-90 (Gaye Joellen, RN) Resting Tone (Palpate): Relaxed (Gaye Joellen, RN) Monitor Mode: External US (Gaye Joellen, RN) FHR Baseline Rate : 145 (Gaye Joellen, RN) Variability: Moderate 6-25 bpm (Gaye Joellen, RN) Accelerations: 10X10 (Gaye Joellen, RN) Decelerations: None (Gaye Joellen, RN) Datetime: 08/05/2016 19:18 NBP Sys/Vira/Mean (mmHg): 115 (QS system process) : 61 (QS system process) : 83 (QS system process) Pulse: 87 (QS system process) LaborFlag: Antepartum (QS system process) Datetime: 08/05/2016 19:17 NBP Sys/Vira/Mean (mmHg): 121 (QS system process) : 62 (QS system process) : 83 (QS system process) Pulse: 81 (QS system process) LaborFlag: Antepartum (QS system process) Datetime: 08/05/2016 19:16 NBP Sys/Vira/Mean (mmHg): 105 (QS system process) : 61 (QS system process) : 76 (QS system process) Pulse: 93 (QS system process) LaborFlag: Antepartum (QS system process) Datetime: 08/05/2016 19:15 NBP Sys/Vira/Mean (mmHg): 109 (QS system process) : 61 (QS system process) : 79 (QS system process) Pulse: 90 (QS system process) Monitor Mode: External (Radha Grant RN) Frequency (min): utd (Radha Grant RN) Quality: Moderate (Radha Grant RN) Duration (sec): 60 (Radha Grant RN) Resting Tone (Palpate): Relaxed (Radha Grant RN) Monitor Mode: External US (Radha Grant RN) Variability: Moderate 6-25 bpm (Radha Grant RN) Decelerations: Late (Radha Grant RN) Actions for Decelerations: Other (Radha Grant RN) Comments: ephedrine (Radha Grant RN) LaborFlag: Antepartum (QS system process) Datetime: 08/05/2016 19:14 NBP Sys/Vira/Mean (mmHg): 102 (QS system process) : 56 (QS system process) : 74 (QS system process) Pulse: 89 (QS system process) Monitor Interventions for UA: [place] Adjusted (Gaye Cuenca RN) Contraction Comments: IUPC discontinued accidentally during epidural procedure, toco applied (Gaye Cuenca RN) LaborFlag: Antepartum (QS system process) Datetime: 08/05/2016 19:13 NBP Sys/Vira/Mean (mmHg): 103 (QS system process) : 56 (QS system process) : 74 (QS system process) Pulse: 85 (QS system process) LaborFlag: Antepartum (QS system process) Datetime: 08/05/2016 19:12 NBP Sys/Vira/Mean (mmHg): 105 (QS system process) : 51 (QS system process) : 73 (QS system process) Pulse: 83 (QS system process) Actions for Decelerations: IV Bolus (Gaye Cuenca RN) Medication Comments: 5mg Ephedrine IV (Cleo Abebe RN) IV/Blood Work: New IV Bag Hung (Gaye Cuenca RN) LaborFlag: Antepartum (QS system process) Datetime: 08/05/2016 19:10 Dilatation (cm): 5.0 (Gaye Cuenca RN) Effacement (%): 90 (Gaye Cuenca RN) Station: -1 (Gaye Cuenca RN) Exam by: Falguni Abebe RN (Gaye Cuenca RN) Patient Position/Activity: Right Tilt (Cleo Abebe RN) Datetime: 08/05/2016 19:09 NBP Sys/Vira/Mean (mmHg): 161 (QS system process) : 67 (QS system process) : 97 (QS system process) Pulse: 87 (QS system process) LaborFlag: Antepartum (QS system process) Datetime: 08/05/2016 19:07 Monitor Mode: External (Radha Grant RN) Monitor Interventions for UA: [place] Adjusted (Radha Grant RN) Datetime: 08/05/2016 19:05 NBP Sys/Vira/Mean (mmHg): 134 (QS system process) : 59 (QS system process) : 85 (QS system process) Pulse: 85 (QS system process) I/O Interventions: Topete Cath Inserted (Cleo Abebe RN) Patient Care Comments: pt tolerated procedure well (Cleo Abebe RN) LaborFlag: Antepartum (QS system process) Datetime: 08/05/2016 19:04 NBP Sys/Vira/Mean (mmHg): 122 (QS system process) : 67 (QS system process) : 86 (QS system process) Pulse: 88 (QS system process) LaborFlag: Antepartum (QS system process) Datetime: 08/05/2016 19:03 NBP Sys/Vira/Mean (mmHg): 113 (QS system process) : 68 (QS system process) : 84 (QS system process) Pulse: 86 (QS system process) LaborFlag: Antepartum (QS system process) Datetime: 08/05/2016 19:02 NBP Sys/Vira/Mean (mmHg): 114 (QS system process) : 69 (QS system process) : 85 (QS system process) Pulse: 85 (QS system process) LaborFlag: Antepartum (QS system process)
[2016-08-06 07:34] LABS: HEMOGLOBIN 10.5 g/dL (12.0-15.5); HGB HCT DIFFERENCE 0.5; MEAN CORPUSCULAR HEMOGLOBIN 33.5 pg (27.0-33.4); MEAN CORPUSCULAR HGB CONC 33.8 g/dL (32.0-36.0); MEAN CORPUSCULAR VOLUME 99 fl (80-97); RED BLOOD COUNT 3.12 10^6/uL (3.72-5.28); WHITE BLOOD COUNT 12.8 10^3/uL (4.0-10.5)
[2016-08-06] MEDS: SENNOSIDES/DOCUSATE 8.6-50 MG 1 EACH TABLET PO SCH (10:04)
[2016-08-06] MEDS: DOCUSATE SODIUM 100 MG CAPSULE PO SCH ×2 (10:04→17:58)
[2016-08-06] MEDS: FERROUS SULFATE 325 MG TABLET PO SCH ×2 (10:05→17:58)
[2016-08-06] MEDS: PRENATAL VITAMIN W-O CA NO5/FE FUMARATE/FA CAPSULE PO SCH (10:05)
[2016-08-06] MEDS: FAMOTIDINE 20 MG TABLET PO SCH ×2 (10:05→21:25)
--- NOTE | 2016-08-06 11:17 | PDOC PROGRESS REPORT ---
Subjective-OB Subjective: Post Delivery Day: 26 year old. Denies any needs at this time. Pt doing well, no concerns. Reports light bleeding, regular diet and voiding without difficulty. Physical Exam (OB) Vital Signs: Temp Pulse Resp BP Pulse Ox 98.2 F 95 18 110/53 L 98 08/06/16 08:29 08/06/16 08:29 08/06/16 08:29 08/06/16 08:29 08/06/16 08:29 Intake & Output 08/05/16 08/06/16 08/07/16 06:59 06:59 06:59 Output Total 1 Balance -1 Weight 103 kg - Lochia Lochia Amount: Scant < 10 ml Lochia Color: Rubra/Red - Abdomen Description: Tender, Soft Hernia Present: No Fundal Description: Firm, Midline Fundal Height: u/u - u/2 Objective-Diagnostic Laboratory: 08/06/16 07:17 08/05/16 08/05/16 08/05/16 12:35 12:45 12:45 WBC Cancelled RBC Cancelled Hgb Cancelled Hct Cancelled MCV Cancelled MCH Cancelled MCHC Cancelled RDW Cancelled Plt Count Cancelled Seg Neutrophils % Cancelled Lymphocytes % Cancelled Monocytes % Cancelled Eosinophils % Cancelled Basophils % Cancelled Absolute Neutrophils Cancelled Absolute Lymphocytes Cancelled Absolute Monocytes Cancelled Absolute Eosinophils Cancelled Absolute Basophils Cancelled Urine Color YELLOW Urine Appearance SLIGHTLY-CLOUDY Urine pH 6.0 Ur Specific [place] 1.020 Urine Protein NEGATIVE Urine Glucose (UA) 150 H Urine Ketones NEGATIVE Urine Blood NEGATIVE Urine Nitrite NEGATIVE Ur Leukocyte Esterase NEGATIVE Blood Type Cancelled Antibody Screen Cancelled 08/05/16 08/05/16 08/06/16 13:32 13:32 07:17 WBC 9.1 12.8 H RBC 3.35 L 3.12 L Hgb 11.3 L 10.5 L Hct 33.1 L 31.0 L MCV 99 H 99 H MCH 33.8 H 33.5 H MCHC 34.3 33.8 RDW 13.5 14.0 Plt Count 203 207 Seg Neutrophils % 73.4 Lymphocytes % 16.7 Monocytes % 9.2 Eosinophils % 0.4 Basophils % 0.3 Absolute Neutrophils 6.7 Absolute Lymphocytes 1.5 Absolute Monocytes 0.8 Absolute Eosinophils 0.0 Absolute Basophils 0.0 Urine Color Urine Appearance Urine pH Ur Specific [place] Urine Protein Urine Glucose (UA) Urine Ketones Urine Blood Urine Nitrite Ur Leukocyte Esterase Blood Type A POSITIVE Antibody Screen NEGATIVE Assessment and Plan(PN) - Assessment and Plan (1) Vaginal delivery Is this a current diagnosis for this admission?: Yes - Time Spent with Patient Time with patient: Less than 15 minutes Medications reviewed and adjusted accordingly: Yes - Disposition Anticipated Discharge: Home Within: within 24 hours
--- NOTE | 2016-08-06 18:01 | L&D General Admission ---
General Admit Datetime Report Generated by CPN: 08/06/2016 18:00 INFORMATION Patient Age: 26 (08/05/2016 12:19:QS system process) EDC: 08/03/2016 00:00 (08/05/2016 12:24:Cleo Abebe RN) : 3 (08/05/2016 12:24:Cleo Abebe RN) Para: 1 (08/05/2016 12:24:Cleo Abebe RN) Term: 1 (08/05/2016 12:24:Cleo Abebe RN) : 0 (08/05/2016 12:24:Cleo Abebe RN) Spontaneous Abortions: 0 (08/05/2016 12:24:Cleo Abebe RN) Induced Abortions: 1 (08/05/2016 12:24:Cleo Abebe RN) Livin (08/05/2016 12:24:Cleo Abebe RN) Cesareans: 0 (08/05/2016 12:24:Cleo Abebe RN) VBACs: 0 (08/05/2016 12:24:Cleo Abebe RN) Ectopic: 0 (08/05/2016 12:24:Cleo Abebe RN) Multiple Births: 0 (08/05/2016 12:24:Cleo Abebe RN) Baby, Number in Womb: 1 (08/05/2016 12:24:Cleo Abebe RN) CARE Primary Gastroenterology Teacher: [facility] (08/05/2016 12:24:ARTUR Pete) Month of 1st Visit: 02/2016 (08/05/2016 12:24:ARTUR Pete) Adequate Care: No (08/05/2016 12:24:ARTUR Pete) Prepregnancy Weight (lb): 155 (08/05/2016 12:24:ARTUR Pete) Prepregnancy Weight (kg): 70.5 (08/05/2016 12:24:QS system process) Height (in): 63 (08/06/2016 08:00:QS system process) ALLERGIES Medication Allergy: Yes (08/05/2016 12:24:Cleo Abebe RN) Medication Allergies: shellfish derived (08/05/2016) (08/05/2016 12:31:QS system process) Latex Allergy: No Latex Allergies (08/05/2016 12:24:Cleo Abebe RN) COMMUNICATION Primary Language: Portuguese (08/05/2016 12:24:Cleo Abebe RN) Medical Tx Preferred Language: Portuguese (08/05/2016 12:24:Cleo Abebe RN) Communication Barrier(s): None (08/05/2016 12:24:ARTUR Pete) DEMOGRAPHICS Address: [address] [place] [address] (08/05/2016 12:19:QS system process) Zipcode: [address] (08/05/2016 12:19:QS system process) Home (08/05/2016 12:19:QS system process) Work (08/05/2016 12:19:QS system process) N: [phone] (08/05/2016 12:19:QS system process) Next of Kin Name: YEMI SADLER (08/05/2016 12:19:QS system process) Next of Kin (08/05/2016 12:19:QS system process) Next of Kin Relationship: MO (08/05/2016 12:19:QS system process) Date of : 1990 (08/05/2016 12:19:QS system process) Marital Status: Single (08/05/2016 12:19:QS system process) Sex: Female (08/05/2016 12:19:QS system process) Occupation: Student (08/05/2016 12:24:ARTUR Pete) Race: (08/05/2016 12:19:QS system process) Ethnicity: Non- or (08/05/2016 12:19:QS system process) Cheondoism: None (08/05/2016 12:19:QS system process) FOB Involved: Yes (08/05/2016 12:24:ARTUR Pete) Father of Baby Name: Bharat (08/05/2016 12:24:ARTUR Pete) DRUG AND ALCOHOL USE Alcohol: No (08/05/2016 12:24:Cleo Abebe RN) Cigarettes: Former Smoker. [id number] (08/05/2016 12:24:Cleo Abebe RN) Marijuana: No (08/05/2016 12:24:Cleo Abebe RN) Cocaine: No (08/05/2016 12:24:Cleo Abebe RN) Other Illicit Drugs: No (08/05/2016 12:24:Cleo Abebe RN) VACCINE HISTORY Influenza Vaccine: No (08/05/2016 12:24:Tahmina Camp, RN) Pneumococcal Vaccine: No (08/05/2016 12:24:Tahmina Camp, RNC) Tetanus Vaccine: No (08/05/2016 12:24:Tahmina Camp, RNC) Tdap Vaccine: No (08/05/2016 12:24:Tahmina Camp, RNC) Hepatitis B Vaccine: No (08/05/2016 12:24:Tahmina Camp, RNC) Keg Washer: [facility] (08/05/2016 12:24:Tahmina Camp, RNC) Feeding Preference: Breast (08/05/2016 12:24:Tahmina Camp, RNC) Benefit of Breast Feed Discussed: Yes (08/05/2016 12:24:Tahmina Vargas, RNC) Circumcision: N/A (08/05/2016 12:24:Tahmina Vargas, RNC) Classes Attended: No (08/05/2016 12:24:Tahmina Vargas, RNC) Tubal Ligation: No (08/05/2016 12:24:Tahmina Camp, RNC) Tubal Authorization Signed: N/A (08/05/2016 12:24:ARTUR Pete) Consent: No (08/05/2016 12:24:ARTUR Pete) Consent Signed: No (08/05/2016 12:24:ARTUR Pete) Pain Management Plans: Epidural (08/05/2016 12:24:ARTUR Pete) Other Pain Management Plans: unsure (08/05/2016 12:24:ARTUR Pete) Plans for Labor and Delivery: Other, Specify (08/05/2016 12:24:Cleo Abebe RN) Other Labor and Delivery Plans: wants placenta attached for unknown amount of time (08/05/2016 12:24:Cleo Abebe RN) Support Person: Bharat Larios (08/05/2016 12:24:ARTUR Pete) Support Person Relationship: FOB (08/05/2016 12:24:ARTUR Pete) Cultural/Spritual Practice: N/A (08/05/2016 12:24:ARTUR Pete) Spir/Cult Dietary Needs: N/A (08/05/2016 12:24:ARTUR Pete) LIVING SITUATION/DISCHARGE PLAN Living Arrangements: [place] (08/05/2016 12:24:ARTUR Pete) Adequate Access to:: Electric; Heat; Refrigeration; Plumbing/Running water; Phone; Transportation (08/05/2016 12:24:ARTUR Pete) WIC Program: Needs referral (08/05/2016 12:24:ARTUR Pete) Discharge Sex Worker Or Escort Person: bharat (08/05/2016 12:24:ARTUR Pete) Person to Help after Discharge: bharat (08/05/2016 12:24:ARTRU Pete) Currently Using Commun Resources: No (08/05/2016 12:24:ARTUR Pete) Outside Agency/Cytogenetics Technologist: No (08/05/2016 12:24:ARTUR Pete) Car Seat for Discharge: Yes (08/05/2016 12:24:ARTUR Pete) Adoption Requested: No (08/05/2016 12:24:ARTUR Pete) Pt Contact w/ Post : N/A (08/05/2016 12:24:ARTUR Pete) LABS Blood Type: A Positive (08/05/2016 12:24:Cleo Abebe RN) Antibody Screen: neg (08/05/2016 12:24:Cleo Abebe RN) Hemoglobin: 10.5 L (08/06/2016 07:17:QS system process) Hematocrit: 31.0 L (08/06/2016 07:17:QS system process) MCV: 99 H (08/06/2016 07:17:QS system process) Group Beta Strep: neg (08/05/2016 12:24:Cleo Abebe RN) Gonorrhea: Negative (08/05/2016 12:24:Cleo Abebe RN) Chlamydia: Negative (08/05/2016 12:24:Cleo Abebe RN) RPR/VDRL: Nonreactive (08/05/2016 12:24:Cleo Abebe RN) HIV Exposure Test: Negative (08/05/2016 12:24:Cleo Abebe RN) HIV Results: nefgative (08/05/2016 12:24:ARTUR Pete) Hepatitis B: Negative (08/05/2016 12:24:Cleo Abebe RN) Rubella: Immune (08/05/2016 12:24:Cleo Abebe RN) OB/PREVIOUS HISTORY Previous Procedures: Ultrasound; NST (08/05/2016 12:24:Cleo Abebe RN) Current Procedures: Ultrasound (08/05/2016 12:24:Cleo Abebe RN) History of Previous : No (08/05/2016 12:24:Cleo Abebe RN) History of Gestational Diabetes: No (08/05/2016 12:24:Cleo Abebe RN) History of PIH: No (08/05/2016 12:24:Cleo Abebe RN) History of Incompetent Cervix: No (08/05/2016 12:24:Cleo Abebe RN) History of Placenta Previa/Abrup: No (08/05/2016 12:24:Cleo Abebe RN) History of Macrosomia: No (08/05/2016 12:24:Cleo Abebe RN) History of IUGR: No (08/05/2016 12:24:Cleo Abebe RN) History of Hemorrhage: No (08/05/2016 12:24:Cleo Abebe RN) History of Loss/Stillborn: No (08/05/2016 12:24:Cleo Abebe RN) History of : No (08/05/2016 12:24:Cleo Abebe RN) History of D (Rh) Sensitization: No (08/05/2016 12:24:Cleo Abebe RN) History Recurrent Loss/Stillborn: No (08/05/2016 12:24:Cleo Abebe RN) History Depression/PP Depression: No (08/05/2016 12:24:Cleo Abebe RN) History of Uterine Anomaly/GABE: No (08/05/2016 12:24:Cleo Abebe RN) History of Infertility: No (08/05/2016 12:24:Cleo Abebe RN) History of ART Treatment: No (08/05/2016 12:24:Cleo Abebe RN) History of GABE: No (08/05/2016 12:24:Cleo Abebe RN) Comments Obstetrical History: G1- IAB 2006 9 weeks G2- m 40.3 weeks [id number] G3- current late PNC (08/05/2016 12:24:Cleo Abebe RN) MEDICAL HISTORY Med Hx Diabetes: No (08/05/2016 12:24:Cleo Abebe RN) Med Hx Hypertension: No (08/05/2016 12:24:Cleo Abebe RN) Med Hx Heart Disease: No (08/05/2016 12:24:Cleo Abebe RN) Med Hx Autoimmune Disorder: No (08/05/2016 12:24:Cleo Abebe RN) Med Hx Kidney Disease/UTI: No (08/05/2016 12:24:Cleo Abebe RN) Med Hx Neurologic/Epilepsy: No (08/05/2016 12:24:Cleo Abebe RN) Med Hx Psychiatric Disorders: No (08/05/2016 12:24:Cleo Abebe RN) Med Hx Hepatitis/Liver Disease: No (08/05/2016 12:24:Cleo Abebe RN) Med Hx Varicosities/Phlebitis: No (08/05/2016 12:24:Cleo Abebe RN) Med Hx Thyroid Dysfunction: No (08/05/2016 12:24:Cleo Abebe RN) Med Hx Trauma/Violence: No (08/05/2016 12:24:Cleo Abebe RN) Med Hx Blood Transfusion: No (08/05/2016 12:24:Cleo Abebe RN) Med Hx Pulmonary (Asthma,TB): No (08/05/2016 12:24:Cleo Abebe RN) Med Hx Breast: No (08/05/2016 12:24:Cleo Aebbe RN) Med Hx COMPRESSOR SERVICE TECHNICIAN Surgery: No (08/05/2016 12:24:Cleo Abebe RN) Med Hx Hospitalization/Surgery: No (08/05/2016 12:24:Cleo Abebe RN) Med Hx Anesthetic Complications: No (08/05/2016 12:24:Cleo Abebe RN) Med Hx Abnormal Pap Smear: No (08/05/2016 12:24:Cleo Abebe RN) Other Medical Diseases: No (08/05/2016 12:24:Cleo Abebe RN) Med Hx Significant Family Hx: No (08/05/2016 12:24:Cleo Abebe RN) Details of Med/Surg Hx: Carpal tunnel (08/05/2016 12:24:Gaye Cuenca RN) INFECTIOUS HISTORY Inf Hx Gonorrhea: No (08/05/2016 12:24:Cleo Abebe RN) Inf Hx Chlamydia: No (08/05/2016 12:24:Cleo Abebe RN) Inf Hx Syphilis: No (08/05/2016 12:24:Cleo Abebe RN) Inf Hx HIV/AIDS: No (08/05/2016 12:24:Cleo Abebe RN) Inf Hx Human Papilloma Virus: No (08/05/2016 12:24:Cleo Abebe RN) Inf Hx Pt/Partner Genital Herpes: No (08/05/2016 12:24:Cleo Abebe RN) Inf Hx Tuberculosis/Exposure: No (08/05/2016 12:24:Cleo Abebe RN) Inf Hx Hepatitis B,C: No (08/05/2016 12:24:Cleo Abebe RN) Inf Hx Rash or Viral Illness: No (08/05/2016 12:24:Cleo Abebe RN) GENETIC HISTORY Gen Hx Age >=35 at DERICK: No (08/05/2016 12:24:Cleo Abebe RN) Gen Hx Thalassemia: No (08/05/2016 12:24:Cleo Abebe RN) Gen Hx Congenital Heart Defect: No (08/05/2016 12:24:Cleo Abebe RN) Gen Hx Neural Tube Defect: No (08/05/2016 12:24:Cleo Abebe RN) Gen Hx Down's Syndrome: No (08/05/2016 12:24:Cleo Abebe RN) Gen Hx Josef-Sachs: No (08/05/2016 12:24:Cleo Abebe RN) Gen Hx Leon: No (08/05/2016 12:24:Cleo Abebe RN) Gen Hx Familial Dysautonomia: No (08/05/2016 12:24:Cleo Abebe RN) Gen Hx Sickle Cell Disease/Trait: No (08/05/2016 12:24:Cleo Abebe RN) Gen Hx Hemophilia/Blood Disorder: No (08/05/2016 12:24:Cleo Abebe RN) Gen Hx Muscular Dystrophy: No (08/05/2016 12:24:Cleo Abebe RN) Gen Hx Cystic Fibrosis: No (08/05/2016 12:24:Cleo Abebe RN) Gen Hx Huntingtons Chorea: No (08/05/2016 12:24:Cleo Abebe RN) Gen Hx Mental Retardation/Autism: No (08/05/2016 12:24:Cleo Abebe RN) Gen Hx Tested for Fragile X: No (08/05/2016 12:24:Cleo Abebe RN) Gen Hx Other Inher/Chromosomal: No (08/05/2016 12:24:Cleo Abebe RN) Gen Hx Maternal Metabolic DO: No (08/05/2016 12:24:Cleo Abebe RN) Gen Hx Pt Father or FOB Defect: No (08/05/2016 12:24:Cleo Abebe RN) Gen Hx Other Genetic History: No (08/05/2016 12:24:Cleo Abebe RN) Gen Hx Drugs/Meds since LMP: No (08/05/2016 12:24:Cleo Abebe RN) Details of Genetic History: FOB - heart murmur as a child (Annotations: Data stored by Tom on behalf of user) (08/05/2016 12:24:Cleo Abebe RN)
--- NOTE | 2016-08-06 18:01 | L&D Current Admission ---
Current Admit Datetime Report Generated by CPN: 08/06/2016 18:00 ADMISSION INFORMATION Current Admit Date/Time: 08/05/2016 12:35 (08/05/2016 12:49:ARTUR Pete) Reason for Admission: Induction of Labor (08/05/2016 12:49:ARTUR Pete) Chief Complaint: Scheduled Induction of Labor (08/05/2016 12:53:Cleo Abebe RN) EGA per Dates: 40.2 (08/05/2016 12:49:QS system process) Method of Arrival: Ambulatory (08/05/2016 12:49:ARTUR Pete) Reason for Induction: Oligohydramnios (08/05/2016 12:49:ARTUR Pete) Records Available: Yes (08/05/2016 12:49:ARTUR Pete) General Admission Information: Reviewed (08/05/2016 12:49:ARTUR Pete) BELONGINGS/ADVANCED DIRECTIVES Disposition of Belongings: Kept with Patient (08/05/2016 12:49:ARTUR Pete) Comments Regarding Disposition: see signed belongings consent (08/05/2016 12:49:ARTUR Pete) Advance Direct for Healthcare: No, and Wants No Information (08/05/2016 12:49:ARTUR Pete) Durable Power of Technician Assistant: No (08/05/2016 12:49:ARTUR Pete) Living Will: No (08/05/2016 12:49:ARTUR Pete) Organ Donor: No (08/05/2016 12:49:ARTUR Pete) Pt Rights Information Given: Yes (08/05/2016 12:49:ARTUR Pete) Pt Understands Pt Rights: Yes (08/05/2016 12:49:ARTUR Pete) LEARNING ASSESSMENT Knowledge Level: Understands L_D Process; Understands Care Activities; Had Pre-Hospital Education; Understands Diagnosis (08/05/2016 12:49:ARTUR Pete) Barriers to Learning: None (08/05/2016 12:49:ARTUR Pete) Learning Readiness: Motivated (08/05/2016 12:49:ARTUR Pete) Learns Best By: 1 to 1 Instruction (08/05/2016 12:49:ARTUR Pete) Learning Needs: Labor and Delivery Process; Pain Management; Symptoms to Report; Treatment Plan; Medication; Diagnosis; Nutrition; Equipment; Care; Community Resources (08/05/2016 12:49:Tahmina Vargas [facility]) DOMESTIC VIOLANCE SCREENING Dom Viol Threatened/Hurt: No (08/05/2016 12:49:Tahmina Vargas [facility]) Hx of Abuse/Neglect past 2yrs: No (08/05/2016 12:49:Tahmina Vargas [facility]) Feel Unsafe Going Home: No (08/05/2016 12:49:Tahmina Vargas [facility]) Addt'l Observ Indicating Abuse: No (08/05/2016 12:49:Tahmina Vargas [facility]) Reason Unable to Complete Screen: N/A, Screen Completed (08/05/2016 12:49:Tahmina Vargas [facility]) Considered Personal Harm/Suicide: No (08/05/2016 12:49:Tahmina Vargas [facility]) NUTRITIONAL/FUNCTIONAL SCREENING Problem with Appetite >5 Days: No (08/05/2016 12:49:ARTUR Pete) Chew/Swallow Difficulties: No (08/05/2016 12:49:ARTUR Pete) Inappropriate Wt Gain/Loss: No (08/05/2016 12:49:ARTUR Pete) Presence Skin Breakdown/Ulcer: No (08/05/2016 12:49:ARTUR Pete) Special Diet: No (08/05/2016 12:49:ARTUR Pete) Pt Requests Data Governance Analyst Visit: No (08/05/2016 12:49:ARTUR Pete) Hx of Any of the Following?: N/A (08/05/2016 12:49:ARTUR Pete) New Diagnosis of: N/A (08/05/2016 12:49:ARTUR Pete) Requires Assist w/Ambulation: No (08/05/2016 12:49:ARTUR Pete) Uses Assist Device to Ambulate: No (08/05/2016 12:49:ARTUR Pete) Pt Requires Help w/ADL's: No (08/05/2016 12:49:ARTUR Pete)
--- NOTE | 2016-08-06 18:15 | L&D Care Plan ---
LD CARE PLANS Datetime Report Generated by CPN: 08/06/2016 18:15 Datetime: 08/05/2016 12:35 Pain State: Risk For (Tahmnia Camp, RNC) Related To: Labor and Delivery Process; Treatment and Procedures (Tahmina Camp, RNC) Goal(s): Patients Pain will be Assessed and Managed; Patient will Verbalize Adequate Relief of Pain or the Ability to Julian with Current Pain (Tahmina Camp, RNC) Interventions: Assess Pain Severity on Scale of 0 (None) to 5 (Severe); Assess Type, Location and Intensity of Pain Each Time Client Reports Discomfort and Notify Provider if Unusal Pain Develops; Encourage Proper Breathing and Relaxation Techniques; Offer Alternatives Such as Repositioning, Calm Environment, Massages, Diversional Activities, Ice Pack, Splinting, and Ambulation; Administer Analgesics as Ordered; Assist with Epidural Placement as Appropriate; Evaluate Therapeutic Effectiveness of Medication and Treatments (Tahmina Vargas, ARTUR) Outcome: Patient will Report Absence or Relief of Pain Consistent with Established Pain Goal (ARTUR Pete) Status: Ongoing (ARTUR Pete) Outcome: Patient will have a Decrease in Signs and Symptoms of Discomfort (ARTUR Pete) Status: Ongoing (ARTUR Pete) Outcome: Pain will be Controlled During Procedures (ARTUR Pete) Status: Ongoing (ARTUR Pete) Anxiety State: Actual (ARTUR Pete) Related To: Labor and Delivery Process; Perceived or Actual Threat to ; Fear of Unknown; Situational Crisis; Medical Interventions; Significant Life Event (ARTUR Pete) Goal(s): Patient will have Decreased Anxiety and be able to Function at Acceptable Levels (Tahmina Vargas, ARTUR) Interventions: Assess Verbal and Nonverbal Behavioral Indicators of Anxiety; Assist Patient to Identify and Verbalize Symptoms of Anxiety; Identify and Demonstrate Techniques to Control Anxiety; Assist Patient with Coping Mechanisms to Manage Anxiety; Provide Theraputic Touch for the Patient; Explain to Patient, Using a Calm Reassuring Approach and Nonmedical Terms, All Activities, Procedures, and Concerns; Instruct Patient and Family about Post Discharge Care, Limitations, Symptoms to Report and Resources Available (ARTUR Pete) Outcome: Patient will Identify, Verbalize and Demonstrate Techniques to Control Anxiety (ARTUR Pete) Status: Ongoing (Tahmina Vargas, [facility]) Outcome: Patient's Posture, Facial Expressions, Gestures and Activity Level will Reflect Decreased Anxiety (Tahmina Vargas, [facility]) Status: Ongoing (Tahmina Vargas, RN) Outcome: Patient will Verbalize a Sense of Control and/or Acceptance of the Situation (Tahmina Vargas, RNC) Status: Ongoing (Tahmina Vargas, RN) Outcome: Patient will Identify and Utilize Support Person (Tahmina Vargas [facility]) Status: Ongoing (Tahmina Vargas, [facility]) Knowledge Deficit State: Actual (ARTUR Pete) Related To: Labor and Delivery Process; Treatment and Procedures; Impending Alterations in Family Dynamics; Feeding and Infant Care; Community Resources and Available Support Mechanisms (Tahmina Vargas, ARTUR) Goal(s): Patient will Accurately Verbalize Understanding of Plan of Care and Treatment; Patient and Family will Accurately Verbalize Understanding of the Disease Process (ARTUR Pete) Interventions: Assess Motivation and Willingness of Patient/Family to Learn; Assess Preferred Learning Mode: One to One Instruction, Reading, Videos, Group Discussion or Demonstration; Assess Barriers to Learning: Pain, Emotional State, Language Barrier, Cognitive Impairment, Visual or Hearing Deficits; Assess Patient and Family Knowledge of Disease Process, Medications and Treatment; Discuss Therapy and/or Treatment Options, Describe Rationale Behind Management, Therapy and Treatment Recommendations; Instruct Patient and Family on Signs and Symptoms to Report; Instruct Patient and Family on Medication Effects and Side Effects; Provide Appropriate and Timely Education Using Multiple Techniques; Provide Patient and Family with Support Group Information and Resources; Give Clear and Thorough Explanations and Demonstrations (ARTUR Pete) Outcome: Patient and Family will Verbalize Understanding of Condition, Treatment and Signs and Symptoms to Report (Tahmina Vargas, RNC) Status: Ongoing ([facility], RN) Outcome: Patient will Identify Perceived Learning Needs and Express Motivation to Learn ([facility]: [facility]ing [facility] Outcome: Patient will Verbalize Understanding of Desired Content, and/or Performs Desired Skill Prior to Discharge ([facility]) Status: Ongoing ([facility], RNC) Infection State: Risk For (Tahmina Vargas, [facility]) Related To: Prolonged Labor or Induction; Invasive Procedures (Tahmina [place], [facility]) Goal(s): The Patient will be Free of Infection, Vital Signs Stable and Lab Work within Normal Parameters (Tahmina [place], [facility]) Interventions: Instruct and Reinforce Proper Handwashing, Hygiene, and Care Techniques to Patient and Family; Monitor Vital Signs; Monitor Patient for the Following Signs of Infection: Fever, Abdominal Tenderness, Unusual Discharge; Monitor Aminiotic Fluid, Urine and Lochia for Color and Odor; Observe Wounds, Incisions and Invasive Line Sites for Redness, Drainage and Edema; Assess IV Sites per Hospital Policy; Monitor Lab and Test Results and Notify Provider of Abnormal Findings; Assess Nutritional Status and Promote Good Nutrition (Tahmina Vargas, [facility]) Outcome: Patient will Remain Free of Infection (Tahmina [place], RN) Status: [facility]ngoing [facility] Outcome: Infection will be Recognized Early to Allow for Prompt Treatment (Tahmina Vargas, [facility]) Status: Ongoing ([facility], RN) Outcome: Patient will have Vital Signs Within Expected Range ([facility], RNC) Status: Ongoing ([facility], RNC) Fluid Volume Related To: Prolonged Labor or Induction (Tahmina Camp, RNC) Goal(s): Patient will Achieve and Maintain a Balanced Fluid Volume Status; Hemodynamically Stable (Tahmina Camp, RNC) Interventions: Monitor Vital Signs; Auscultate Breath Sounds; Monitor Patient for Skin Turgor, Mucous Membranes, Dry Skin, Weakness, Headaches and Confusion; Provide Oral Fluids as Ordered; Initiate and Maintain Intravenous Fluids as Ordered; Monitor Intake and Output as Indicated Per Patient Status; Accurately Measure Blood Loss; Monitor Lab and Test Results as Obtained and Notify Provider of Abnormal Findings; Monitor Patient's Weight (Tahmina Camp, RNC) Outcome: Patient will have Clear Lung Sounds (Tahmina Camp, RNC) Status: Ongoing (Tahmina Camp, RNC) Outcome: Patient will have Vital Signs within Expected Range (Tahmina Camp, RNC) Status: Ongoing (Tahmina Camp, RNC) Outcome: Urine Output will be within Expected Range (Tahmina Camp, RNC) Status: Ongoing (Tahmina Camp, RNC) Outcome: Patient will have Minimal Generalized or Upper Extremity Edema (Tahmina Camp, RNC) Status: Ongoing (Tahmina Camp, RNC) Injury State: Risk For (Tahmina Camp, RNC) Related To: Labor and Delivery Process; Anesthesia; Risk to Status; Uteroplacental Perfusion (ARTUR Pete) Goal(s): Patient will Remain Free from Injury (ARTUR Pete) Interventions: Monitoring as per Hospital Protocol; Assess Neurological Status; Perform Risk Assessment of Patients with Induction and ; Perform Fall Risk Assessment and Prevention per Hospital Protocol; Perform DVT Risk Assessment and Prophylaxis per Hospital Protocol; Ensure that Oxygen, Suction, and Resuscitation Medications and Equipment are Readily Available; Confirm Patient ID Prior to Procedure(s) and Medication Administration per Hospital Policy (ARTUR Pete) Outcome: Successful Fall Risk Prevention (ARTUR Pete) Status: Ongoing (ARTUR Pete) Outcome: Patient will Deliver without Adverse Sequela (ARTUR Pete) Status: Ongoing (ARTUR Pete) Outcome: Patient's Neurological Status will Remain Stable (ARTUR Pete) Status: Ongoing (Tahmina Vargas RNC) Impaired Skin Integrity State: Risk For (ARTUR Pete) Related To: Vaginal Delivery; Invasive Procedures (ARTUR Pete) Goal(s): Patient will Maintain Optimal Skin Integrity, Free of Breakdown, Injury or Infection (ARTUR Pete) Interventions: Complete Screening for Pressure Ulcer Risk and Initiate Protocol per Hospital Policy; Monitor Site of Skin Impairment for Color Changes, Redness, Swelling, Warmth, Pain or Other Signs of Infection; Encourage and Assist with Position Changes; Monitor Patient's Mobility Status; Provide Adequate Nutrition and Fluids; Teach Patient Appropriate Hygienic Care; Teach Patient/Family Skin Care Management (ARTUR Pete) Outcome: Patient will not have Evidence of Injury Such as Skin Breakdown, Scrapes, Cuts, or Bruising (Tahmina Vargas RNC) Status: Ongoing (Tahmina Vargas, [facility]) Outcome: Patient will Report Any Altered Sensation or Pain at Site of Skin Impairment (Tahmina Vargas, RNC) Status: Ongoing (Tahmina Vargas, RN) Outcome: Patients Incisions and Wounds will be without Signs or Symptoms of Infection (Tahmina Vargas, RN) Status: Ongoing (Tahmina Vargas, [facility]) Outcome: Patient will Demonstrate Understanding of Plan to Heal Skin and Prevent Reinjury and Verbalize Risk Factors (Tahmina Vargas, [facility]) Status: Ongoing (Tahmina Vargas, [facility])
[2016-08-07] MEDS: IBUPROFEN 800 MG TABLET PO SCH (05:11)
--- NOTE | 2016-08-07 06:01 | L&D General Admission ---
General Admit Datetime Report Generated by CPN: 08/07/2016 06:00 INFORMATION Patient Age: 26 (08/05/2016 12:19:QS system process) EDC: 08/03/2016 00:00 (08/05/2016 12:24:Cleo Abebe RN) : 3 (08/05/2016 12:24:Cleo Abebe RN) Para: 1 (08/05/2016 12:24:Cleo Abebe RN) Term: 1 (08/05/2016 12:24:Cleo Abebe RN) : 0 (08/05/2016 12:24:Cleo Abebe RN) Spontaneous Abortions: 0 (08/05/2016 12:24:Cleo Abebe RN) Induced Abortions: 1 (08/05/2016 12:24:Cleo Abebe RN) Livin (08/05/2016 12:24:Cleo Abebe RN) Cesareans: 0 (08/05/2016 12:24:Cleo Abebe RN) VBACs: 0 (08/05/2016 12:24:Cleo Abebe RN) Ectopic: 0 (08/05/2016 12:24:Cleo Abebe RN) Multiple Births: 0 (08/05/2016 12:24:Cleo Abebe RN) Baby, Number in Womb: 1 (08/05/2016 12:24:Cleo Abebe RN) CARE Primary School Crossing Guard: [facility] (08/05/2016 12:24:ARTUR Pete) Month of 1st Visit: 02/2016 (08/05/2016 12:24:ARTUR Pete) Adequate Care: No (08/05/2016 12:24:ARTUR Pete) Prepregnancy Weight (lb): 155 (08/05/2016 12:24:ARTUR Pete) Prepregnancy Weight (kg): 70.5 (08/05/2016 12:24:QS system process) Height (in): 63 (08/06/2016 08:00:QS system process) ALLERGIES Medication Allergy: Yes (08/05/2016 12:24:Cleo Abebe RN) Medication Allergies: shellfish derived (08/05/2016) (08/05/2016 12:31:QS system process) Latex Allergy: No Latex Allergies (08/05/2016 12:24:Cleo Abebe RN) COMMUNICATION Primary Language: Kosovan (08/05/2016 12:24:Cleo Abebe RN) Medical Tx Preferred Language: Kosovan (08/05/2016 12:24:Cleo Abebe RN) Communication Barrier(s): None (08/05/2016 12:24:ARTUR Pete) DEMOGRAPHICS Address: [address] [place] [address] (08/05/2016 12:19:QS system process) Zipcode: [address] (08/05/2016 12:19:QS system process) Home (08/05/2016 12:19:QS system process) Work (08/05/2016 12:19:QS system process) N: [phone] (08/05/2016 12:19:QS system process) Next of Kin Name: YEMI SADLER (08/05/2016 12:19:QS system process) Next of Kin (08/05/2016 12:19:QS system process) Next of Kin Relationship: MO (08/05/2016 12:19:QS system process) Date of : 1990 (08/05/2016 12:19:QS system process) Marital Status: Single (08/05/2016 12:19:QS system process) Sex: Female (08/05/2016 12:19:QS system process) Occupation: Student (08/05/2016 12:24:ARTUR Pete) Race: (08/05/2016 12:19:QS system process) Ethnicity: Non- or (08/05/2016 12:19:QS system process) Zoroastrian: None (08/05/2016 12:19:QS system process) FOB Involved: Yes (08/05/2016 12:24:ARTUR Pete) Father of Baby Name: Bharat (08/05/2016 12:24:ARTUR Pete) DRUG AND ALCOHOL USE Alcohol: No (08/05/2016 12:24:Cleo Abebe RN) Cigarettes: Former Smoker. [id number] (08/05/2016 12:24:Cleo Abebe RN) Marijuana: No (08/05/2016 12:24:Cleo Abebe RN) Cocaine: No (08/05/2016 12:24:Cleo Abebe RN) Other Illicit Drugs: No (08/05/2016 12:24:Cleo Abebe RN) VACCINE HISTORY Influenza Vaccine: No (08/05/2016 12:24:Tahmina Camp, RN) Pneumococcal Vaccine: No (08/05/2016 12:24:Tahmina Camp, RNC) Tetanus Vaccine: No (08/05/2016 12:24:Tahmina Camp, RNC) Tdap Vaccine: No (08/05/2016 12:24:Tahmina Camp, RNC) Hepatitis B Vaccine: No (08/05/2016 12:24:Tahmina Camp, RNC) Button Inspector: [facility] (08/05/2016 12:24:Tahmina Camp, RNC) Feeding Preference: Breast (08/05/2016 12:24:Tahmina Camp, RNC) Benefit of Breast Feed Discussed: Yes (08/05/2016 12:24:Tahmina Vargas, RNC) Circumcision: N/A (08/05/2016 12:24:Tahmina Vargas, RNC) Classes Attended: No (08/05/2016 12:24:Tahmina Vargas, RNC) Tubal Ligation: No (08/05/2016 12:24:Tahmina Camp, RNC) Tubal Authorization Signed: N/A (08/05/2016 12:24:ARTUR Pete) Consent: No (08/05/2016 12:24:ARTUR Pete) Consent Signed: No (08/05/2016 12:24:ARTUR Pete) Pain Management Plans: Epidural (08/05/2016 12:24:ARTUR Pete) Other Pain Management Plans: unsure (08/05/2016 12:24:ARTUR Pete) Plans for Labor and Delivery: Other, Specify (08/05/2016 12:24:Cleo Abebe RN) Other Labor and Delivery Plans: wants placenta attached for unknown amount of time (08/05/2016 12:24:Cleo Abebe RN) Support Person: Bharat Larios (08/05/2016 12:24:ARTUR Pete) Support Person Relationship: FOB (08/05/2016 12:24:ARTUR Pete) Cultural/Spritual Practice: N/A (08/05/2016 12:24:ARTUR Pete) Spir/Cult Dietary Needs: N/A (08/05/2016 12:24:ARTUR Pete) LIVING SITUATION/DISCHARGE PLAN Living Arrangements: [employer] (08/05/2016 12:24:ARTUR Pete) Adequate Access to:: Electric; Heat; Refrigeration; Plumbing/Running water; Phone; Transportation (08/05/2016 12:24:ARTUR Pete) WIC Program: Needs referral (08/05/2016 12:24:ARTUR Pete) Discharge Laundry Machine Operator Person: bharat (08/05/2016 12:24:ARTUR Pete) Person to Help after Discharge: bharat (08/05/2016 12:24:ARTUR Pete) Currently Using Commun Resources: No (08/05/2016 12:24:ARTUR Pete) Outside Agency/Rack Carrier: No (08/05/2016 12:24:ARTUR Pete) Car Seat for Discharge: Yes (08/05/2016 12:24:ARTUR Pete) Adoption Requested: No (08/05/2016 12:24:ARTUR Pete) Pt Contact w/ Post : N/A (08/05/2016 12:24:ARTUR Pete) LABS Blood Type: A Positive (08/05/2016 12:24:Cleo Abebe RN) Antibody Screen: neg (08/05/2016 12:24:Cleo Abebe RN) Hemoglobin: 10.5 L (08/06/2016 07:17:QS system process) Hematocrit: 31.0 L (08/06/2016 07:17:QS system process) MCV: 99 H (08/06/2016 07:17:QS system process) Group Beta Strep: neg (08/05/2016 12:24:Cleo Abebe RN) Gonorrhea: Negative (08/05/2016 12:24:Cleo Abebe RN) Chlamydia: Negative (08/05/2016 12:24:Cleo Abebe RN) RPR/VDRL: Nonreactive (08/05/2016 12:24:Cleo Abebe RN) HIV Exposure Test: Negative (08/05/2016 12:24:Cleo Abebe RN) HIV Results: nefgative (08/05/2016 12:24:ARTUR Pete) Hepatitis B: Negative (08/05/2016 12:24:Cleo Abebe RN) Rubella: Immune (08/05/2016 12:24:Cleo Abebe RN) OB/PREVIOUS HISTORY Previous Procedures: Ultrasound; NST (08/05/2016 12:24:Cleo Abebe RN) Current Procedures: Ultrasound (08/05/2016 12:24:Cleo Abebe RN) History of Previous : No (08/05/2016 12:24:Cleo Abebe RN) History of Gestational Diabetes: No (08/05/2016 12:24:Cleo Abebe RN) History of PIH: No (08/05/2016 12:24:Cleo Abebe RN) History of Incompetent Cervix: No (08/05/2016 12:24:Cleo Abebe RN) History of Placenta Previa/Abrup: No (08/05/2016 12:24:Cleo Abebe RN) History of Macrosomia: No (08/05/2016 12:24:Cleo Abebe RN) History of IUGR: No (08/05/2016 12:24:Cleo Abebe RN) History of Hemorrhage: No (08/05/2016 12:24:Cleo Abebe RN) History of Loss/Stillborn: No (08/05/2016 12:24:Cleo Abebe RN) History of : No (08/05/2016 12:24:Cleo Abebe RN) History of D (Rh) Sensitization: No (08/05/2016 12:24:Cleo Abebe RN) History Recurrent Loss/Stillborn: No (08/05/2016 12:24:Cleo Abebe RN) History Depression/PP Depression: No (08/05/2016 12:24:Cleo Abebe RN) History of Uterine Anomaly/GABE: No (08/05/2016 12:24:Cleo Abebe RN) History of Infertility: No (08/05/2016 12:24:Cleo Abebe RN) History of ART Treatment: No (08/05/2016 12:24:Cleo Abebe RN) History of GABE: No (08/05/2016 12:24:Cleo Abebe RN) Comments Obstetrical History: G1- IAB 2006 9 weeks G2- m 40.3 weeks 4ll28cs G3- current late PNC (08/05/2016 12:24:lCeo Abebe RN) MEDICAL HISTORY Med Hx Diabetes: No (08/05/2016 12:24:Cleo Abebe RN) Med Hx Hypertension: No (08/05/2016 12:24:Cleo Abebe RN) Med Hx Heart Disease: No (08/05/2016 12:24:Cleo Abebe RN) Med Hx Autoimmune Disorder: No (08/05/2016 12:24:Cleo Abebe RN) Med Hx Kidney Disease/UTI: No (08/05/2016 12:24:Cleo Abebe RN) Med Hx Neurologic/Epilepsy: No (08/05/2016 12:24:Cleo Abebe RN) Med Hx Psychiatric Disorders: No (08/05/2016 12:24:Cleo Abebe RN) Med Hx Hepatitis/Liver Disease: No (08/05/2016 12:24:Cleo Abebe RN) Med Hx Varicosities/Phlebitis: No (08/05/2016 12:24:Cleo Abebe RN) Med Hx Thyroid Dysfunction: No (08/05/2016 12:24:Cleo Abebe RN) Med Hx Trauma/Violence: No (08/05/2016 12:24:Cleo Abebe RN) Med Hx Blood Transfusion: No (08/05/2016 12:24:Cleo Abebe RN) Med Hx Pulmonary (Asthma,TB): No (08/05/2016 12:24:Cleo Abebe RN) Med Hx Breast: No (08/05/2016 12:24:Cleo Abebe RN) Med Hx RELATIONSHIP ASSOCIATE Surgery: No (08/05/2016 12:24:Cleo Abebe RN) Med Hx Hospitalization/Surgery: No (08/05/2016 12:24:Cleo Abebe RN) Med Hx Anesthetic Complications: No (08/05/2016 12:24:Cleo Abebe RN) Med Hx Abnormal Pap Smear: No (08/05/2016 12:24:Cleo Abebe RN) Other Medical Diseases: No (08/05/2016 12:24:Cleo Abebe RN) Med Hx Significant Family Hx: No (08/05/2016 12:24:Cleo Abebe RN) Details of Med/Surg Hx: Carpal tunnel (08/05/2016 12:24:Gaye Cuenca RN) INFECTIOUS HISTORY Inf Hx Gonorrhea: No (08/05/2016 12:24:Cleo Abebe RN) Inf Hx Chlamydia: No (08/05/2016 12:24:Cleo Abebe RN) Inf Hx Syphilis: No (08/05/2016 12:24:Cleo Abebe RN) Inf Hx HIV/AIDS: No (08/05/2016 12:24:Cleo Abebe RN) Inf Hx Human Papilloma Virus: No (08/05/2016 12:24:Cleo Abebe RN) Inf Hx Pt/Partner Genital Herpes: No (08/05/2016 12:24:Cleo Abebe RN) Inf Hx Tuberculosis/Exposure: No (08/05/2016 12:24:Cleo Abebe RN) Inf Hx Hepatitis B,C: No (08/05/2016 12:24:Cleo Abebe RN) Inf Hx Rash or Viral Illness: No (08/05/2016 12:24:Cleo Abebe RN) GENETIC HISTORY Gen Hx Age >=35 at DERICK: No (08/05/2016 12:24:Cleo Abebe RN) Gen Hx Thalassemia: No (08/05/2016 12:24:Cleo Abebe RN) Gen Hx Congenital Heart Defect: No (08/05/2016 12:24:Cleo Abebe RN) Gen Hx Neural Tube Defect: No (08/05/2016 12:24:Cleo Abebe RN) Gen Hx Down's Syndrome: No (08/05/2016 12:24:Cleo Abebe RN) Gen Hx Josef-Sachs: No (08/05/2016 12:24:Cleo Abebe RN) Gen Hx Leon: No (08/05/2016 12:24:Cleo Abebe RN) Gen Hx Familial Dysautonomia: No (08/05/2016 12:24:Cleo Abebe RN) Gen Hx Sickle Cell Disease/Trait: No (08/05/2016 12:24:Cleo Abebe RN) Gen Hx Hemophilia/Blood Disorder: No (08/05/2016 12:24:Cleo Abebe RN) Gen Hx Muscular Dystrophy: No (08/05/2016 12:24:Cleo Abebe RN) Gen Hx Cystic Fibrosis: No (08/05/2016 12:24:Cleo Abebe RN) Gen Hx Huntingtons Chorea: No (08/05/2016 12:24:Cleo Abebe RN) Gen Hx Mental Retardation/Autism: No (08/05/2016 12:24:Cleo Abebe RN) Gen Hx Tested for Fragile X: No (08/05/2016 12:24:Cleo Abebe RN) Gen Hx Other Inher/Chromosomal: No (08/05/2016 12:24:Cleo Abebe RN) Gen Hx Maternal Metabolic DO: No (08/05/2016 12:24:Cleo Abebe RN) Gen Hx Pt Father or FOB Defect: No (08/05/2016 12:24:Cleo Abebe RN) Gen Hx Other Genetic History: No (08/05/2016 12:24:Cleo Abebe RN) Gen Hx Drugs/Meds since LMP: No (08/05/2016 12:24:Cleo Abebe RN) Details of Genetic History: FOB - heart murmur as a child (Annotations: Data stored by Tom on behalf of user) (08/05/2016 12:24:Cleo Abebe RN)
--- NOTE | 2016-08-07 06:01 | L&D Current Admission ---
Current Admit Datetime Report Generated by CPN: 08/07/2016 06:00 ADMISSION INFORMATION Current Admit Date/Time: 08/05/2016 12:35 (08/05/2016 12:49:ARTUR Pete) Reason for Admission: Induction of Labor (08/05/2016 12:49:ARTUR Pete) Chief Complaint: Scheduled Induction of Labor (08/05/2016 12:53:Cleo Abebe RN) EGA per Dates: 40.2 (08/05/2016 12:49:QS system process) Method of Arrival: Ambulatory (08/05/2016 12:49:ARTUR Pete) Reason for Induction: Oligohydramnios (08/05/2016 12:49:ARTUR Pete) Records Available: Yes (08/05/2016 12:49:ARTUR Pete) General Admission Information: Reviewed (08/05/2016 12:49:ARTUR Pete) BELONGINGS/ADVANCED DIRECTIVES Disposition of Belongings: Kept with Patient (08/05/2016 12:49:ARTUR Pete) Comments Regarding Disposition: see signed belongings consent (08/05/2016 12:49:ARTUR Pete) Advance Direct for Healthcare: No, and Wants No Information (08/05/2016 12:49:ARTUR Pete) Durable Power of Liquor Establishment Manager: No (08/05/2016 12:49:ARTUR Pete) Living Will: No (08/05/2016 12:49:ARTRU Pete) Organ Donor: No (08/05/2016 12:49:ARTUR Pete) Pt Rights Information Given: Yes (08/05/2016 12:49:ARTUR Pete) Pt Understands Pt Rights: Yes (08/05/2016 12:49:ARTUR Pete) LEARNING ASSESSMENT Knowledge Level: Understands L_D Process; Understands Care Activities; Had Pre-Hospital Education; Understands Diagnosis (08/05/2016 12:49:ARTUR Pete) Barriers to Learning: None (08/05/2016 12:49:ARTUR Pete) Learning Readiness: Motivated (08/05/2016 12:49:ARTUR Pete) Learns Best By: 1 to 1 Instruction (08/05/2016 12:49:ARTUR Pete) Learning Needs: Labor and Delivery Process; Pain Management; Symptoms to Report; Treatment Plan; Medication; Diagnosis; Nutrition; Equipment; Care; Community Resources (08/05/2016 12:49:Tahmina Vargas [facility]) DOMESTIC VIOLANCE SCREENING Dom Viol Threatened/Hurt: No (08/05/2016 12:49:Tahmina Vargas [facility]) Hx of Abuse/Neglect past 2yrs: No (08/05/2016 12:49:Tahmina Vargas [facility]) Feel Unsafe Going Home: No (08/05/2016 12:49:Tahmina Vargas [facility]) Addt'l Observ Indicating Abuse: No (08/05/2016 12:49:Tahmina Vargas [facility]) Reason Unable to Complete Screen: N/A, Screen Completed (08/05/2016 12:49:Tahmina Vargas [facility]) Considered Personal Harm/Suicide: No (08/05/2016 12:49:Tahmina Vargas [facility]) NUTRITIONAL/FUNCTIONAL SCREENING Problem with Appetite >5 Days: No (08/05/2016 12:49:ARTUR Pete) Chew/Swallow Difficulties: No (08/05/2016 12:49:ARTUR Pete) Inappropriate Wt Gain/Loss: No (08/05/2016 12:49:ARTUR Pete) Presence Skin Breakdown/Ulcer: No (08/05/2016 12:49:ARTUR Pete) Special Diet: No (08/05/2016 12:49:ARTUR Pete) Pt Requests Nitroglycerin Supervisor Visit: No (08/05/2016 12:49:ARTUR Pete) Hx of Any of the Following?: N/A (08/05/2016 12:49:ARTUR Pete) New Diagnosis of: N/A (08/05/2016 12:49:ARTUR Pete) Requires Assist w/Ambulation: No (08/05/2016 12:49:ARTUR Pete) Uses Assist Device to Ambulate: No (08/05/2016 12:49:ARTUR Pete) Pt Requires Help w/ADL's: No (08/05/2016 12:49:ARTUR Pete)
--- NOTE | 2016-08-07 06:16 | L&D Care Plan ---
LD CARE PLANS Datetime Report Generated by CPN: 08/07/2016 06:15 Datetime: 08/05/2016 12:35 Pain State: Risk For (Tahmina Camp, RNC) Related To: Labor and Delivery Process; Treatment and Procedures (Tahmina Camp, RNC) Goal(s): Patients Pain will be Assessed and Managed; Patient will Verbalize Adequate Relief of Pain or the Ability to [place] with Current Pain (Tahmina Camp, RNC) Interventions: Assess Pain Severity on Scale of 0 (None) to 5 (Severe); Assess Type, Location and Intensity of Pain Each Time Client Reports Discomfort and Notify Provider if Unusal Pain Develops; Encourage Proper Breathing and Relaxation Techniques; Offer Alternatives Such as Repositioning, Calm Environment, Massages, Diversional Activities, Ice Pack, Splinting, and Ambulation; Administer Analgesics as Ordered; Assist with Epidural Placement as Appropriate; Evaluate Therapeutic Effectiveness of Medication and Treatments (Tahmina Vargas, ARTUR) Outcome: Patient will Report Absence or Relief of Pain Consistent with Established Pain Goal (ARTUR Pete) Status: Ongoing (ARTUR Pete) Outcome: Patient will have a Decrease in Signs and Symptoms of Discomfort (ARTUR Pete) Status: Ongoing (ARTUR Pete) Outcome: Pain will be Controlled During Procedures (ARTUR Pete) Status: Ongoing (ARTUR Pete) Anxiety State: Actual (ARTUR Pete) Related To: Labor and Delivery Process; Perceived or Actual Threat to ; Fear of Unknown; Situational Crisis; Medical Interventions; Significant Life Event (ARTUR Pete) Goal(s): Patient will have Decreased Anxiety and be able to Function at Acceptable Levels (Tahmina Vargas, ARTUR) Interventions: Assess Verbal and Nonverbal Behavioral Indicators of Anxiety; Assist Patient to Identify and Verbalize Symptoms of Anxiety; Identify and Demonstrate Techniques to Control Anxiety; Assist Patient with Coping Mechanisms to Manage Anxiety; Provide Theraputic Touch for the Patient; Explain to Patient, Using a Calm Reassuring Approach and Nonmedical Terms, All Activities, Procedures, and Concerns; Instruct Patient and Family about Post Discharge Care, Limitations, Symptoms to Report and Resources Available (ARTUR Pete) Outcome: Patient will Identify, Verbalize and Demonstrate Techniques to Control Anxiety (ARTUR Pete) Status: Ongoing (Tahmina Vargas, [facility]) Outcome: Patient's Posture, Facial Expressions, Gestures and Activity Level will Reflect Decreased Anxiety (Tahmina Vargas, [facility]) Status: Ongoing (Tahmina Vargas, RN) Outcome: Patient will Verbalize a Sense of Control and/or Acceptance of the Situation (Tahmina Vargas, RNC) Status: Ongoing (Tahmina Vargas, RN) Outcome: Patient will Identify and Utilize Support Person (Tahmina Vargas [facility]) Status: Ongoing (Tahmina Vargas, [facility]) Knowledge Deficit State: Actual (ARTUR Pete) Related To: Labor and Delivery Process; Treatment and Procedures; Impending Alterations in Family Dynamics; Feeding and Infant Care; Community Resources and Available Support Mechanisms (Tahmina Vargas, ARTUR) Goal(s): Patient will Accurately Verbalize Understanding of Plan of Care and Treatment; Patient and Family will Accurately Verbalize Understanding of the Disease Process (ARTUR Pete) Interventions: Assess Motivation and Willingness of Patient/Family to Learn; Assess Preferred Learning Mode: One to One Instruction, Reading, Videos, Group Discussion or Demonstration; Assess Barriers to Learning: Pain, Emotional State, Language Barrier, Cognitive Impairment, Visual or Hearing Deficits; Assess Patient and Family Knowledge of Disease Process, Medications and Treatment; Discuss Therapy and/or Treatment Options, Describe Rationale Behind Management, Therapy and Treatment Recommendations; Instruct Patient and Family on Signs and Symptoms to Report; Instruct Patient and Family on Medication Effects and Side Effects; Provide Appropriate and Timely Education Using Multiple Techniques; Provide Patient and Family with Support Group Information and Resources; Give Clear and Thorough Explanations and Demonstrations (ARTUR Pete) Outcome: Patient and Family will Verbalize Understanding of Condition, Treatment and Signs and Symptoms to Report (Tahmina Vargas, RNC) Status: Ongoing ([facility], RN) Outcome: Patient will Identify Perceived Learning Needs and Express Motivation to Learn ([facility] Status: [facility]ngoing ([facility] Outcome: Patient will Verbalize Understanding of Desired Content, and/or Performs Desired Skill Prior to Discharge ([facility], [facility]) Status: Ongoing ([facility], RNC) Infection State: Risk For (Tahmina Vargas, [facility]) Related To: Prolonged Labor or Induction; Invasive Procedures (Tahmina Horatio, [facility]) Goal(s): The Patient will be Free of Infection, Vital Signs Stable and Lab Work within Normal Parameters (Tahmina Horatio, [facility]) Interventions: Instruct and Reinforce Proper Handwashing, Hygiene, and Care Techniques to Patient and Family; Monitor Vital Signs; Monitor Patient for the Following Signs of Infection: Fever, Abdominal Tenderness, Unusual Discharge; Monitor Aminiotic Fluid, Urine and Lochia for Color and Odor; Observe Wounds, Incisions and Invasive Line Sites for Redness, Drainage and Edema; Assess IV Sites per Hospital Policy; Monitor Lab and Test Results and Notify Provider of Abnormal Findings; Assess Nutritional Status and Promote Good Nutrition (Tahmina Vargas, [facility]) Outcome: Patient will Remain Free of Infection (Tahmina Horatio, RN) Status: Ongoing ([facility], [facility]) Outcome: Infection will be Recognized Early to Allow for Prompt Treatment (Tahmina Vargas, [facility]) Status: Ongoing ([facility], RN) Outcome: Patient will have Vital Signs Within Expected Range ([facility], RNC) Status: Ongoing ([facility], RNC) Fluid Volume Related To: Prolonged Labor or Induction (Tahmina Camp, RNC) Goal(s): Patient will Achieve and Maintain a Balanced Fluid Volume Status; Hemodynamically Stable (Tahmina Camp, RNC) Interventions: Monitor Vital Signs; Auscultate Breath Sounds; Monitor Patient for Skin Turgor, Mucous Membranes, Dry Skin, Weakness, Headaches and Confusion; Provide Oral Fluids as Ordered; Initiate and Maintain Intravenous Fluids as Ordered; Monitor Intake and Output as Indicated Per Patient Status; Accurately Measure Blood Loss; Monitor Lab and Test Results as Obtained and Notify Provider of Abnormal Findings; Monitor Patient's Weight (Tahmina Camp, RNC) Outcome: Patient will have Clear Lung Sounds (Tahmina Camp, RNC) Status: Ongoing (Tahmina Camp, RNC) Outcome: Patient will have Vital Signs within Expected Range (Tahmina Camp, RNC) Status: Ongoing (Tahmina Camp, RNC) Outcome: Urine Output will be within Expected Range (Tahmina Camp, RNC) Status: Ongoing (Tahmina Camp, RNC) Outcome: Patient will have Minimal Generalized or Upper Extremity Edema (Tahmina Camp, RNC) Status: Ongoing (Tahmina Camp, RNC) Injury State: Risk For (Tahmina Camp, RNC) Related To: Labor and Delivery Process; Anesthesia; Risk to Status; Uteroplacental Perfusion (ARTUR Pete) Goal(s): Patient will Remain Free from Injury (ARTUR Pete) Interventions: Monitoring as per Hospital Protocol; Assess Neurological Status; Perform Risk Assessment of Patients with Induction and ; Perform Fall Risk Assessment and Prevention per Hospital Protocol; Perform DVT Risk Assessment and Prophylaxis per Hospital Protocol; Ensure that Oxygen, Suction, and Resuscitation Medications and Equipment are Readily Available; Confirm Patient ID Prior to Procedure(s) and Medication Administration per Hospital Policy (ARTUR Pete) Outcome: Successful Fall Risk Prevention (ARTUR Pete) Status: Ongoing (ARTUR Pete) Outcome: Patient will Deliver without Adverse Sequela (ARTUR Pete) Status: Ongoing (ARTUR Pete) Outcome: Patient's Neurological Status will Remain Stable (ARTUR Pete) Status: Ongoing (Tahmina Vargas RNC) Impaired Skin Integrity State: Risk For (ARTUR Pete) Related To: Vaginal Delivery; Invasive Procedures (ARTUR Pete) Goal(s): Patient will Maintain Optimal Skin Integrity, Free of Breakdown, Injury or Infection (ARTUR Pete) Interventions: Complete Screening for Pressure Ulcer Risk and Initiate Protocol per Hospital Policy; Monitor Site of Skin Impairment for Color Changes, Redness, Swelling, Warmth, Pain or Other Signs of Infection; Encourage and Assist with Position Changes; Monitor Patient's Mobility Status; Provide Adequate Nutrition and Fluids; Teach Patient Appropriate Hygienic Care; Teach Patient/Family Skin Care Management (ARTUR Pete) Outcome: Patient will not have Evidence of Injury Such as Skin Breakdown, Scrapes, Cuts, or Bruising (Tahmina Vargas RNC) Status: Ongoing (Tahmina Vargas, [facility]) Outcome: Patient will Report Any Altered Sensation or Pain at Site of Skin Impairment (Tahmina Vargas, RNC) Status: Ongoing (Tahmina Vargas, RN) Outcome: Patients Incisions and Wounds will be without Signs or Symptoms of Infection (Tahmina Vargas, RN) Status: Ongoing (Tahmina Vargas, [facility]) Outcome: Patient will Demonstrate Understanding of Plan to Heal Skin and Prevent Reinjury and Verbalize Risk Factors (Tahmina Vargas, [facility]) Status: Ongoing (Tahmina Vargas, [facility])
[2016-08-07] MEDS: PRENATAL VITAMIN W-O CA NO5/FE FUMARATE/FA CAPSULE PO SCH (08:59)
[2016-08-07] MEDS: DOCUSATE SODIUM 100 MG CAPSULE PO SCH (08:59)
[2016-08-07] MEDS: SENNOSIDES/DOCUSATE 8.6-50 MG 1 EACH TABLET PO SCH (09:00)
[2016-08-07] MEDS: FERROUS SULFATE 325 MG TABLET PO SCH (09:00)
[2016-08-07] MEDS: FAMOTIDINE 20 MG TABLET PO SCH (09:01)
--- NOTE | 2016-08-07 09:52 | PDOC DISCHARGE SUMMARY ---
Final Diagnosis Discharge Date: 08/07/16 - Final Diagnosis (1) Acute blood loss anemia Is this a current diagnosis for this admission?: Yes (2) Vaginal delivery Is this a current diagnosis for this admission?: Yes Discharge Data - Discharge Medication Home Medications: Pnv No.122/Iron/Folic Acid [ Multi Tablet] 1 tab PO DAILY 08/05/16 Docusate Sodium [Colace 100 mg Capsule] 100 mg PO BID #60 capsule 08/07/16 Ibuprofen [Motrin 800 mg Tablet] 800 mg PO Q8 #60 tablet 08/07/16 Gestational Age: 40.2 Reason(s) for Admission: Other - oligo Procedures: NST Intrapartum Procedure(s): Spontaneous Vaginal Delivery - [place] Data Baby 1 Female at 1 minute: 8 at 5 minutes: 9 Weight: 3095 kg Home with Mother: Yes Complications: No - Diagnosis Test Laboratory: Temp Pulse Resp BP Pulse Ox 98.3 F 94 20 110/53 L 100 08/07/16 08:19 08/07/16 08:19 08/07/16 08:19 08/07/16 08:19 08/07/16 08:19 08/05/16 08/05/16 08/05/16 12:35 12:45 13:32 RBC Cancelled 3.35 L Hgb Cancelled 11.3 L Hct Cancelled 33.1 L Urine Opiates Screen NEGATIVE 08/06/16 07:17 RBC 3.12 L Hgb 10.5 L Hct 31.0 L Urine Opiates Screen - Discharge information/Instructions Discharge Activity: Activity As Tolerated, Pelvic Rest, No tub bath Discharge Diet: Regular Disposition: HOME, SELF-CARE Follow up with: [facility] in: 1, Weeks
[2016-08-07 11:04] VITALS: BP 110/53
== END 2016-08-07 12:14 | disposition home or self-care (01) | DRG 775 ==
LOC: LR 12:12 → UNDOADMIN 12:12 → 2S 08-06 01:00
PROVIDERS: ADMIT Obstetrics & Gynecology; ATTEND Obstetrics & Gynecology
PROC: 10E0XZZ Delivery of Products of Conception, External Approach (ICD-10-PCS; principal; 2016-08-05)
PROC: 4A1HXCZ Monitoring of Products of Conception, Cardiac Rate, External Approach (ICD-10-PCS; 2016-08-05)
PROC: 10907ZC Drainage of Amniotic Fluid, Therapeutic from Products of Conception, Via Natural or Artificial Opening (ICD-10-PCS; 2016-08-05)
DX: O41.00X0 Oligohydramnios, unspecified trimester, not applicable or unspecified (principal); D62 Acute posthemorrhagic anemia; Z68.41 Body mass index [BMI] 40.0-44.9, adult; O76 Abnormality in fetal heart rate and rhythm complicating labor and delivery; O99.214 Obesity complicating childbirth; O99.02 Anemia complicating childbirth; Z3A.40 40 weeks gestation of pregnancy; Z37.0 Single live birth; Z87.891 Personal history of nicotine dependence; E66.9 Obesity, unspecified
CPT/HCPCS: 36415; 80307; 81005; 85025; 85027; 86592; 86850; 86900; 86901; J2590; J3490

== ENCOUNTER → 2017-12-15 | Outpatient (CLI) | payer SELFPAY ==
--- NOTE | 2017-12-15 17:03 | RADIOLOGY REPORT (SQ) ---
EXAM DESCRIPTION: U/S [id number] TRNABD 1GES W/ODOP COMPLETED DATE/TIME: 12/15/2017 3:34 pm REASON FOR STUDY: ENCOUNTER FOR SUPRVSN OF NORMAL , FIRST TRIMESTER Z34.81 ENCOUNTER FOR S UPRVSN OF NORMAL , FIRST TRIM COMPARISON: None. TECHNIQUE: Transabdominal static and realtime grayscale images acquired of the pelvis. Additional se lected spectral and color Doppler images recorded. All images stored on PACs. bHCG: Not available CLINICAL DATES: 07/18/2018 LIMITATIONS: None. FINDINGS: FETUS: Living intrauterine . ULTRASOUND EGA: 9 weeks 1 day ULTRASOUND DERICK: 07/19/2018 CRL: 2.56 cm FHR: 168 beats per minute. SUBCHORIONIC BLEED: No SIZE OF BLEED: Not applicable. UTERUS: No masses. No anomalies. CERVICAL LENGTH: 2.1 cm Closed. RIGHT ADNEXA: Normal ovary with normal vascular flow. No adnexal free fluid. No adnexal masses. LEFT ADNEXA: Normal ovary with normal vascular flow. No adnexal free fluid. No adnexal masses. FREE FLUID: None. OTHER: No other significant finding. IMPRESSION: LIVING INTRAUTERINE . EGA 9 weeks 1 day Trimester of : First - 0 to 13 weeks. TECHNICAL DOCUMENTATION: JOB ID: [id number] [employer]- All Rights Reserved Reading location - IP/workstation name: [email or web address]
== END ==
LOC: RAD 14:36
PROVIDERS: ATTEND Nurse Practitioner Women's Health
DX: Z34.81 Encounter for supervision of other normal pregnancy, first trimester (principal)
CPT/HCPCS: 76801